=== PATIENT | male | born 1935 | race Caucasian/White ===

== ENCOUNTER 2017-09-13 12:11 | Emergency (ER) | payer MEDICARE, OTHER ==
--- NOTE | 2017-09-14 14:41 | CR ---
INDICATION: Shortness of breath. CHEST: Three views of the chest were obtained. At least two were PA. Initial portable view was obtained AP with lordotic positioning, and felt to be inadequate. Two lateral views were also obtained. They were obtained on 2016 and are compared with 11/18/2012 and 09/11/2012. Bipolar pacemaker leads are unchanged in position. The heart is enlarged. The aorta is tortuous and calcified. Somewhat flattened diaphragm leaves are noted and appear to be progressively flattened, compatible with progressive COPD. Compression fractures that are old are noted at the lower thoracic spine. They appear to be fairly stable. Accentuated kyphosis is noted at that site. A definite active infiltrate or effusion was not identified. No evidence of CHF is seen. Overlying EKG leads are noted. IMPRESSION: 1. No definite acute process. 2. Progressive COPD is suggested. 3. ASHD with cardiomegaly and bipolar pacemaker leads - stable. 4. Compression fractures lower thoracic spine, stable. MTDD
== END 2017-09-13 14:25 | disposition home or self-care (01) ==
LOC: FB.ED 12:11
DX: R06.00 Dyspnea, unspecified (principal); E87.1 Hypo-osmolality and hyponatremia; G47.33 Obstructive sleep apnea (adult) (pediatric); I10 Essential (primary) hypertension; F41.9 Anxiety disorder, unspecified; Z79.01 Long term (current) use of anticoagulants; Z79.899 Other long term (current) drug therapy; Z95.0 Presence of cardiac pacemaker
CPT/HCPCS: 36415; 71020; 80053; 80162; 83880; 84443; 84484; 85025; 85379; 93010; 99283; 99285

== ENCOUNTER 2020-10-06 15:24 | Emergency (ER) | payer MEDICARE, OTHER ==
[2020-10-06 15:03] VITALS: BP 162/87; PULSE 99
[2020-10-06] MEDS ORDERED: Sodium Chloride 0.9% 10 ML Syringe FLUSH PRN ×2 (15:25→15:35)
[2020-10-06] MEDS ORDERED: Piperacillin/Tazobactam 4.5 GM in Sodium Chloride 0.9% 100 ML IV ONE ×2 (15:26→15:45)
[2020-10-06] MEDS ORDERED: Morphine 2 MG/ML SYRINGE IVPUSH PRN ×2 (15:26→15:34)
[2020-10-06] MEDS ORDERED: Lactated Ringers 1,000 ML IV SCH (15:30)
[2020-10-06] MEDS ORDERED: Morphine 2 MG/ML SYRINGE ONE (15:31)
--- NOTE | 2020-10-06 15:39 | EDM.PDOC ---
ED HPI GENERAL MEDICAL PROBLEM - General Chief Complaint: Abdominal Pain Time Seen by Provider: 10/06/20 15:24 Source of Information: Reports: Patient, Provider History Limitations: Reports: No Limitations - History of Present Illness INITIAL COMMENTS - FREE TEXT/NARRATIVE: Dagoberto presented to Clinic today for 2 day history of abdominal pain, last bowel movement was Tuesday, last meal was yesterday, he vomited after he ate, has not had any medications or food since. Denies any fevers, chills, cough, chest pain. He has COPD, states his shortness of breath is about the same as usual. Urinated in the clinic and when he arrived. CBC in clinic was 17.1, Cr 0.8 GFR>60, CRP 28. CMP pending(done at ), UA was negative. CT abdomen/pelvis done here at [facility] earlier this afternoon showed perforated bowel with large amount of free air, peritonitis, diverticulitis, spoke with Quinn Willoughby PA-C and Dr Dao Radiology. He initially had been sent over for admission prior to CT results being obtained by Mr. Willoughby. He was changed to ED patient on arrival. Spoke with Dr Sauer, surgeon combination welder, he advised transferred to [place]. He is a FULL CODE. Has oxygen at home but doesn't use regularly. - Related Data Allergies Allergy/AdvReac Type Severity Reaction Status Date / Time No Known Allergies Allergy Verified 10/06/20 12:59 Home Meds: Home Meds Citalopram [Citalopram HBr] 10 mg PO DAILY 04/28/15 [History] Levothyroxine [Synthroid] 50 mcg PO DAILY 04/28/15 [History] Lisinopril 20 mg PO DAILY 04/28/15 [History] Simvastatin [Zocor] 20 mg PO DAILY 04/28/15 [History] amLODIPine [Norvasc] 5 mg PO DAILY 04/28/15 [History] carvediloL [Coreg] 25 mg PO BID 04/28/15 [History] Albuterol [Ventolin HFA] 2 puff INH QID 11/07/15 [History] Aspirin 325 mg PO DAILY 11/07/15 [History] Carbatrol 200mg 400 mg PO BID 10/06/20 [History] Diclofenac Sodium 2 gm TP QID 10/06/20 [History] Tiotropium [Spiriva] 18 mcg INH DAILY 10/06/20 [History] Past Medical History HEENT History: Reports: Cataract, Hard of Hearing, Impaired Vision Cardiovascular History: Reports: High Cholesterol, Hypertension, Pacemaker, SOB on Exertion Respiratory History: Reports: Pneumonia, Recurrent Gastrointestinal History: Reports: Diverticulosis Genitourinary History: Reports: None DIRECTOR OF PROMOTIONS History: Reports: None Musculoskeletal History: Reports: Fracture Other Musculoskeletal History: RIGHT ELBOW. Neurological History: Reports: Seizure Other Neuro History: APPROX 20 YEARS AGO X1, MEDICATES, HAS HAD NO SEIZURES SINCE THEN. Psychiatric History: Reports: Anxiety Endocrine/Metabolic History: Reports: Hypothyroidism, Obesity/BMI 30+ Hematologic History: Reports: None Immunologic History: Reports: None Oncologic (Cancer) History: Reports: None Dermatologic History: Reports: Other (See Below) Other Dermatologic History: STREET IN PAST ON CHEST. - Infectious Disease History Infectious Disease History: Reports: Chicken Pox, Measles, Mumps - Past Surgical History Head Surgeries/Procedures: Reports: None HEENT Surgical History: Reports: Cataract Surgery GI Surgical History: Reports: Appendectomy, Colonoscopy Other Musculoskeletal Surgeries/Procedures:: ELBOW SURGERY R ED ROS GENERAL - Review of Systems Review Of Systems: See Below Constitutional: Reports: No Symptoms HEENT: Reports: No Symptoms Respiratory: Reports: Shortness of Breath (chronic). Denies: Cough Cardiovascular: Reports: No Symptoms Endocrine: Reports: No Symptoms GI/Abdominal: Reports: Abdominal Pain, Constipation, Flatus. Denies: Black Stool, Bloody Stool, Nausea, Vomiting : Reports: No Symptoms Musculoskeletal: Reports: No Symptoms Skin: Reports: No Symptoms Neurological: Reports: No Symptoms Psychiatric: Reports: No Symptoms Hematologic/Lymphatic: Reports: No Symptoms ED EXAM, GI/ABD - Physical Exam Exam: See Below Exam Limited By: No Limitations General Appearance: Alert, WD/WN, No Apparent Distress Eyes: Bilateral: Normal Appearance, EOMI Ears: Normal External Exam Nose: Normal Inspection Throat/Mouth: Normal Inspection Head: Atraumatic, Normocephalic Neck: Normal Inspection Respiratory/Chest: No Respiratory Distress, Lungs Clear, Normal Breath Sounds, No Accessory Muscle Use Cardiovascular: Regular Rate, Rhythm, No Edema GI/Abdominal Exam: Distended, Guarding, Rebound, Tender, Abnormal Bowel Sounds (hypoactive BS x 4). No: Rigid (Male) Exam: Deferred Rectal (Males) Exam: Deferred Extremities: No Pedal Edema, Normal Capillary Refill Neurological: Alert, Oriented, CN II-XII Intact, Normal Cognition, No Motor/Sensory Deficits Psychiatric: Normal Affect, Normal Mood Skin Exam: Warm, Dry, Intact Course - Vital Signs Last Recorded V/S: Last Vital Signs Temp 97.9 F 10/06/20 14:18 Pulse 99 10/06/20 14:18 Resp 16 10/06/20 14:18 BP 162/87 H 10/06/20 14:18 Pulse Ox 95 10/06/20 14:18 - Orders/Labs/Meds Orders: Active Orders 24 hr Category Date Time Status CORONAVIRUS COVID-19 JENNIFER [MOLEC] Stat Lab 10/06/20 15:25 Ordered CULTURE BLOOD [BC] Urgent Lab 10/06/20 15:25 Ordered CULTURE BLOOD [BC] Urgent Lab 10/06/20 15:25 Ordered LACTIC ACID [CHEM] Stat Lab 10/06/20 15:26 Ordered Lactated Ringers @ 50 MLS/HR(1000ml) Med 10/06/20 15:30 Ordered Lactated Ringers [Ringers, Lactated] 1,000 ml IV ASDIRECTED Morphine Med 10/06/20 15:26 Ordered 2 mg IVPUSH Q1H PRN Piperacillin/Tazobactam [Zosyn] 4.5 gm Med 10/06/20 15:26 Ordered Sodium Chloride 0.9% [Normal Saline] 100 ml IV ONETIME Sodium Chloride 0.9% [Saline Flush] Med 10/06/20 15:25 Ordered 10 ml FLUSH ASDIRECTED PRN Blood Culture x2 Reflex Set [OM.PC] Urgent Oth 10/06/20 15:25 Ordered Saline Lock Insert [OM.PC] Routine Oth 10/06/20 15:25 Ordered Medication Orders Piperacillin Sod/Tazobactam (Sod 4.5 gm/ Sodium Chloride) 100 mls @ 200 mls/hr IV ONETIME ONE Stop: 10/06/20 15:55 Lactated Ringer's (Ringers, Lactated) 1,000 mls @ 50 mls/hr IV ASDIRECTED MACIEL Morphine Sulfate (Morphine) 2 mg IVPUSH Q1H PRN PRN Reason: Pain (severe 7-10) Sodium Chloride (Saline Flush) 10 ml FLUSH ASDIRECTED PRN PRN Reason: Keep Vein Open Meds: Medications Generic Name Dose Route Start Last Admin Trade Name Freq PRN Reason Stop Dose Admin Piperacillin Sod/Tazobactam 100 mls @ 200 mls/hr 10/06/20 15:26 Sod 4.5 gm/ Sodium Chloride IV 10/06/20 15:55 ONETIME ONE Lactated Ringer's 1,000 mls @ 50 mls/hr 10/06/20 15:30 Ringers, Lactated IV ASDIRECTED MACIEL Morphine Sulfate 2 mg 10/06/20 15:26 Morphine IVPUSH Q1H PRN Pain (severe 7-10) Sodium Chloride 10 ml 10/06/20 15:25 Saline Flush FLUSH ASDIRECTED PRN Keep Vein Open Discontinued Medications Generic Name Dose Route Start Last Admin Trade Name Freq PRN Reason Stop Dose Admin Morphine Sulfate Confirm 10/06/20 15:31 Morphine Administered 10/06/20 15:32 Dose 2 mg .ROUTE .[facility] ONE - Radiology Interpretation Free Text/Narrative:: Perforated bowel, possibly diverticulitis vs ulcer, peritonitis, diverticulitis. CT Results Date: 10/06/20 CT Results Time: 13:39 Departure - Departure Time of Disposition: 16:10 ([facility]) Disposition: DC/Tfer to [facility] Clinical Impression: Diverticulitis, Leukocytosis, Perforated bowel, Peritonitis (acute) generalized - Discharge Information *PRESCRIPTION DRUG MONITORING PROGRAM REVIEWED*: Not Applicable *COPY OF PRESCRIPTION DRUG MONITORING REPORT IN PATIENT MAURICE: Not Applicable Sepsis Event Note (ED) - Focused Exam Vital Signs: Vital Signs Temp Pulse Resp BP Pulse Ox 10/06/20 14:18 97.9 F 99 16 162/87 H 95 - Problem List & Annotations (1) Perforated bowel SNOMED Code(s): 58441095 Code(s): K63.1 - PERFORATION OF INTESTINE (NONTRAUMATIC) Status: Acute Current Visit: Yes (2) Peritonitis (acute) generalized SNOMED Code(s): 57495763 Code(s): K65.0 - GENERALIZED (ACUTE) PERITONITIS Status: Acute Current Visit: Yes (3) Diverticulitis SNOMED Code(s): 679306457 Code(s): K57.92 - DVTRCLI OF INTEST, PART UNSP, W/O PERF OR ABSCESS W/O BLEED Status: Acute Current Visit: Yes (4) Leukocytosis SNOMED Code(s): 472523152, 554436902 Code(s): D72.829 - ELEVATED WHITE BLOOD CELL COUNT, UNSPECIFIED Status: Acute Current Visit: Yes Qualifiers: Leukocytosis type: unspecified Qualified Code(s): D72.829 - Elevated white blood cell count, unspecified (5) COPD (chronic obstructive pulmonary disease) SNOMED Code(s): 51028344 Code(s): J44.9 - CHRONIC OBSTRUCTIVE PULMONARY DISEASE, UNSPECIFIED Status: Chronic Current Visit: Yes (6) Seizure disorder SNOMED Code(s): 384145499 Code(s): G40.909 - EPILEPSY, UNSP, NOT INTRACTABLE, WITHOUT STATUS EPILEPTICUS Status: Chronic Current Visit: Yes (7) Hypertension SNOMED Code(s): 68659079 Code(s): I10 - ESSENTIAL (PRIMARY) HYPERTENSION Status: Chronic Current Visit: Yes (8) Pacemaker SNOMED Code(s): 458975731 Code(s): Z95.0 - PRESENCE OF CARDIAC PACEMAKER Status: Chronic Current Visit: Yes - Problem List Review Problem List Initiated/Reviewed/Updated: Yes - My Orders Last 24 Hours: My Active Orders 10/06/20 15:25 CORONAVIRUS COVID-19 JENNIFER [MOLEC] Stat CULTURE BLOOD [BC] Urgent CULTURE BLOOD [BC] Urgent Sodium Chloride 0.9% [Saline Flush] 10 ml FLUSH ASDIRECTED PRN Blood Culture x2 Reflex Set [OM.PC] Urgent Saline Lock Insert [OM.PC] Routine 10/06/20 15:26 LACTIC ACID [CHEM] Stat Morphine 2 mg IVPUSH Q1H PRN Piperacillin/Tazobactam [Zosyn] 4.5 gm Sodium Chloride 0.9% [Normal Saline] 100 ml IV ONETIME 10/06/20 15:30 Lactated Ringers @ 50 MLS/HR(1000ml) Lactated Ringers [Ringers, Lactated] 1,000 ml IV ASDIRECTED - Assessment/Plan Last 24 Hours: My Active Orders 10/06/20 15:25 CORONAVIRUS COVID-19 JENNIFER [MOLEC] Stat CULTURE BLOOD [BC] Urgent CULTURE BLOOD [BC] Urgent Sodium Chloride 0.9% [Saline Flush] 10 ml FLUSH ASDIRECTED PRN Blood Culture x2 Reflex Set [OM.PC] Urgent Saline Lock Insert [OM.PC] Routine 10/06/20 15:26 LACTIC ACID [CHEM] Stat Morphine 2 mg IVPUSH Q1H PRN Piperacillin/Tazobactam [Zosyn] 4.5 gm Sodium Chloride 0.9% [Normal Saline] 100 ml IV ONETIME 10/06/20 15:30 Lactated Ringers @ 50 MLS/HR(1000ml) Lactated Ringers [Ringers, Lactated] 1,000 ml IV ASDIRECTED Plan: Spoke with Dr Sauer, combination welder surgeon when CT results were known, advised transfer to [place]. Spoke with Dr Lopez at [facility] Surgeon combination welder, they will accept patient in transfer, will see in ED there. Will get lactic acid, Blood cultures x 2, Start Zosyn 4.5 G x 1, LR to keep vein open as blood pressure is elevated. Morphine 2 mg IV q1h. Covid test collected and will send results once obtained. Patient is FULL CODE. Spoke with patient's , Francie CT findings and need to transfer to [place], Dagoberto and her were in agreement with transfer. Her cell number was given to ED nurse in [place].
[2020-10-06] MEDS ORDERED: HYDROmorphone 2 MG/ML SDV IVPUSH ONE (15:57)
== END 2020-10-06 16:15 ==
LOC: FB.EDOUT 15:24 → FB.ED 15:24 → FB.EDOUT 16:15
DX: K57.92 Diverticulitis of intestine, part unspecified, without perforation or abscess without bleeding (principal); D72.829 Elevated white blood cell count, unspecified; K63.1 Perforation of intestine (nontraumatic); K65.0 Generalized (acute) peritonitis; E78.00 Pure hypercholesterolemia, unspecified; I10 Essential (primary) hypertension; E03.9 Hypothyroidism, unspecified; E66.9 Obesity, unspecified; Z20.822 Contact with and (suspected) exposure to COVID-19; Z79.899 Other long term (current) drug therapy; Z79.82 Long term (current) use of aspirin
CPT/HCPCS: 36415; 74177; 83605; 87040; 96365; 96375; 99285-25; J2270; J2543; J7050; Q9963; Q9967; U0002

== ENCOUNTER 2020-10-16 07:53 | Inpatient (IN) | payer MEDICARE, OTHER ==
[2020-10-16] MEDS ORDERED: Albuterol 8 GM Inhaler INH PRN (13:52)
--- NOTE | 2020-10-16 13:59 | PCM.HP.2 ---
H&P History of Present Illness - General Date of Service: 10/16/20 Admit Problem/Dx: Admission Diagnosis/Problem Admission Diagnosis/Problem Weakness Source of Information: Patient, Old Records, Provider - History of Present Illness Initial Comments - Free Text/Narative: Dagoberto had perforated diverticulitis on 10/06, was sent to [facility], had end- loop colostomy, midline incision loosely stapled to allow drainage and secondary intent of the wound. Daily and as needed dressing changes with dry gauze, has surgery follow up appointment on Oct 23 At 1345 in [place]. Had hypokalemia yesterday of 2.9 but corrected today was 3.6 in [place]. He was discharged with 5 more days of Augmentin bid, completed his IV antibiotics in [place]. He has weight restrictions: no lifting >15 pounds for 4 weeks. Denies fevers, chills, shortness of breath, chest pain, nausea or vomiting. Has had regular bowel movements for the last 24 hours. No dysuria, frequency. No rashes. Midline incision with colostomy LLQ. Had bilateral knee injections in clinic on 10/03, noted right effusion during acute stay in [place], Orthopedics assessed for questionable septic joint, they did not feel it was infected, recommended ice & elevation. Covid test negative yesterday. - Related Data Allergies/Adverse Reactions: Allergies Allergy/AdvReac Type Severity Reaction Status Date / Time No Known Allergies Allergy Verified 10/06/20 12:59 Home Medications: Home Meds Citalopram [Citalopram HBr] 10 mg PO DAILY 04/28/15 [History] Levothyroxine [Synthroid] 50 mcg PO DAILY 04/28/15 [History] Simvastatin [Zocor] 20 mg PO DAILY 04/28/15 [History] carvediloL [Coreg] 25 mg PO BIDMEALS 04/28/15 [History] Albuterol [Ventolin HFA] 2 puff INH QID PRN 11/07/15 [History] Aspirin 325 mg PO DAILY 11/07/15 [History] Carbatrol 200mg 400 mg PO BID 10/06/20 [History] Diclofenac Sodium 2 gm TP QID 10/06/20 [History] Tiotropium [Spiriva] 18 mcg INH DAILY 10/06/20 [History] Amoxicillin/Clavulanate K [Augmentin 875125 MG] 1 tab PO Q12H 10/16/20 [History] amLODIPine Besylate [Amlodipine Besylate] 10 mg PO DAILY 10/16/20 [History] hydrALAZINE [Apresoline] 25 mg PO TID 10/16/20 [History] lisinopriL [Lisinopril] 40 mg PO DAILY 10/16/20 [History] Past Medical History HEENT History: Reports: Cataract, Hard of Hearing, Impaired Vision Cardiovascular History: Reports: High Cholesterol, Hypertension, Pacemaker, SOB on Exertion Respiratory History: Reports: Pneumonia, Recurrent Gastrointestinal History: Reports: Diverticulosis Genitourinary History: Reports: None SIZE PAINTER History: Reports: None Musculoskeletal History: Reports: Fracture Other Musculoskeletal History: RIGHT ELBOW. Neurological History: Reports: Seizure Other Neuro History: APPROX 20 YEARS AGO X1, MEDICATES, HAS HAD NO SEIZURES SINCE THEN. Psychiatric History: Reports: Anxiety Endocrine/Metabolic History: Reports: Hypothyroidism, Obesity/BMI 30+ Hematologic History: Reports: None Immunologic History: Reports: None Oncologic (Cancer) History: Reports: None Dermatologic History: Reports: Other (See Below) Other Dermatologic History: STREET IN PAST ON CHEST. - Infectious Disease History Infectious Disease History: Reports: Chicken Pox, Measles, Mumps - Past Surgical History Head Surgeries/Procedures: Reports: None HEENT Surgical History: Reports: Cataract Surgery GI Surgical History: Reports: Appendectomy, Colonoscopy Other Musculoskeletal Surgeries/Procedures:: ELBOW SURGERY R Social & Family History - Caffeine Use Caffeine Use: Reports: Coffee H&P Review of Systems - Review of Systems: Review Of Systems: Comprehensive ROS is negative, except as noted in HPI. Exam - Exam Exam: See Below - Vital Signs Weight: 238 lb 12.8 oz - Exam General: Alert, Oriented, Cooperative. No: Mild Distress HEENT: PERRLA, Conjunctiva Clear, Hearing Intact, Mucosa Moist & [place] Neck: Trachea Midline Lungs: Clear to Auscultation, Normal Respiratory Effort Cardiovascular: Regular Rate, Regular Rhythm GI/Abdominal Exam: Normal Bowel Sounds, Soft, Non-Tender, No Distention, Other (Midline incision covered with ABD pad, colostomy LLQ) (Male) Exam: Deferred Rectal (Males) Exam: Deferred Extremities: No Pedal Edema (TEDs BLE), Normal Capillary Refill Peripheral Pulses: 2+: Radial (L), Radial (R) Skin: Incision (midline covered ABD pad) Neuro Extensive - Mental Status: Alert, Oriented x3, Normal Mood/Affect Sepsis Event Note - Evaluation Sepsis Screening Result: No Definite Risk *Q Meaningful Use (ADM) - VTE Risk Assess *Q Each Risk Factor Represents 1 Point: None Total Score 1 Point Risk Factors: 0 Each Risk Factor Represents 2 Points: Major surgery greater than 45 minutes Total Score 2 Point Risk Factors: 2 Each Risk Factor Represents 3 Points: Age 75 Years or Greater Total Score 3 Point Risk Factors: 3 Each Risk Factor Represents 5 Points: None Total Score 5 Point Risk Factors: 0 Venous Thromboembolism Risk Factor Score *Q: 5 - Problem List (1) Weakness SNOMED Code(s): 43266781 ICD Code: R53.1 - WEAKNESS Status: Acute Current Visit: Yes (2) S/P colostomy SNOMED Code(s): 744767555, 804802385, 126679389 ICD Code: Z93.3 - COLOSTOMY STATUS Status: Acute Current Visit: Yes Onset Date: ~10/06/20 (3) Perforated bowel SNOMED Code(s): 77854799 ICD Code: K63.1 - PERFORATION OF INTESTINE (NONTRAUMATIC) Status: Acute Current Visit: No Onset Date: ~10/06/20 Problem Details: s/p end-loop colostomy (4) Hypertension SNOMED Code(s): 02738754 ICD Code: I10 - ESSENTIAL (PRIMARY) HYPERTENSION Status: Chronic Current Visit: No Qualifiers: Hypertension type: essential hypertension Qualified Code(s): I10 - Essential (primary) hypertension (5) Pacemaker SNOMED Code(s): 025509582 ICD Code: Z95.0 - PRESENCE OF CARDIAC PACEMAKER Status: Chronic Current Visit: No (6) Seizure disorder SNOMED Code(s): 836144363 ICD Code: G40.909 - EPILEPSY, UNSP, NOT INTRACTABLE, WITHOUT STATUS EPILEPTICUS Status: Chronic Current Visit: No (7) Osteoarthritis SNOMED Code(s): 215432896 ICD Code: M19.90 - UNSPECIFIED OSTEOARTHRITIS, UNSPECIFIED SITE Status: Chronic Current Visit: Yes (8) Effusion, right knee SNOMED Code(s): 628521293738623 ICD Code: M25.461 - EFFUSION, RIGHT KNEE Status: Acute Current Visit: Yes Onset Date: ~10/03/20 Problem List Initiated/Reviewed/Updated: Yes Orders Last 24hrs: Active Orders 24 hr Category Date Time Status Patient Status [ADT] Routine ADT 10/16/20 13:46 Ordered Height and Weight [RC] WEEKLY Care 10/16/20 13:46 Ordered Ostomy Assessment [RC] QSHIFT Care 10/16/20 13:46 Active Oxygen Therapy [RC] PRN Care 10/16/20 13:46 Ordered RT Post Treatment Assessment [RC] Click to Edit Care 10/16/20 13:53 Ordered Up ad Jane [RC] ASDIRECTED Care 10/16/20 13:46 Ordered VTE/DVT Education [RC] Per Unit Routine Care 10/16/20 13:46 Ordered Vital Signs [RC] PER UNIT ROUTINE Care 10/16/20 13:46 Ordered Wound Care [RC] DAILY Care 10/16/20 13:46 Ordered OT Evaluation and Treatment [CONS] Routine Cons 10/16/20 13:46 Ordered PT Evaluation and Treatment [CONS] Routine Cons 10/16/20 13:46 Ordered Regular Diet [DIET] Diet 10/16/20 Dinner Ordered Albuterol [Ventolin HFA] Med 10/16/20 13:52 Ordered 2 puff INH QID PRN Amoxicillin/Clavulanate K [Augmentin 875 MG/125 MG] Med 10/16/20 14:00 Ordered 1 tab PO Q12H Aspirin [Aspirin] Med 10/17/20 09:00 Ordered 325 mg PO DAILY Carbatrol 200mg Med 10/16/20 21:00 Ordered 400 mg PO BID Citalopram [Celexa] Med 10/17/20 09:00 Ordered 10 mg PO DAILY Diclofenac Sodium [Diclofenac Sodium] Med 10/16/20 17:00 Ordered 2 gm TP QID Levothyroxine [Synthroid] Med 10/17/20 09:00 Ordered 50 mcg PO DAILY Simvastatin [Zocor] Med 10/17/20 09:00 Ordered 20 mg PO DAILY Tiotropium [Spiriva HandiHaler] Med 10/17/20 09:00 Ordered 18 mcg INH DAILY amLODIPine [Norvasc] Med 10/17/20 09:00 Ordered 10 mg PO DAILY carvediloL [Coreg] Med 10/16/20 18:00 Ordered 25 mg PO BIDMEALS hydrALAZINE [Apresoline] Med 10/16/20 14:00 Ordered 25 mg PO TID lisinopriL [Prinivil] Med 10/17/20 09:00 Ordered 40 mg PO DAILY Antiembolic Hose [OM.PC] Per Unit Routine Oth 10/16/20 13:51 Ordered Resuscitation Status Routine Resus Stat 10/16/20 13:46 Ordered Medication Orders Albuterol (Ventolin Hfa) gm INH QID PRN PRN Reason: Shortness of Breath Amlodipine Besylate (Norvasc) 10 mg PO DAILY [facility] Amoxicillin/Clavulanate Potassium (Augmentin 875 Mg/125 Mg) 1 tab PO Q12H [facility] Stop: 10/21/20 14:01 Carvedilol (Coreg) 25 mg PO BIDMEALS [facility] Citalopram Hydrobromide (Celexa) 10 mg PO DAILY [facility] Hydralazine HCl (Apresoline) 25 mg PO TID [facility] Levothyroxine Sodium (Synthroid) 50 mcg PO DAILY [facility] Lisinopril (Prinivil) 40 mg PO DAILY [facility] Non-Formulary Medication (Aspirin [Aspirin]) 325 mg PO DAILY [facility] Non-Formulary Medication (Carbatrol 200mg) 400 mg PO BID [facility] Non-Formulary Medication (Diclofenac Sodium [Diclofenac Sodium]) 2 gm TP QID [facility] Simvastatin (Zocor) 20 mg PO DAILY [facility] Tiotropium [place] (Spiriva Handihaler) 18 mcg INH DAILY [facility] Assessment/Plan Comment:: 1. Admit to Swing bed for PT/OT for strengthening/ADLs due to weakness, s/p perforated diverticulitis, s/p colostomy. 2. PT/OT evaluate & treat. No lifting >15 lbs for 4 weeks. 3. S/p perforated diverticulitis: completed IV antibiotics in [place], has 5 days of Augmentin bid to complete. Routine colostomy cares. Clean incision with soap & water daily, change dry gauze dressing daily & as needed. F/U surgery appt 10/23 1345 pm next week in [place]. 4. Right knee effusion, OA: Ice & Elevated as needed. 5. Regular diet. 6. DVT prophylaxis: TEDs BLE, Aspirin 325 mg daily. 7. CODE STATUS: FULL. - Mortality Measure Prognosis:: Good
[2020-10-16] MEDS: hydrALAZINE 25 MG Tab PO SCH ×2 (15:28→20:55)
[2020-10-16] MEDS: Diclofenac Sodium 1% Gel 100 GM Tube TOP SCH ×2 (18:07→20:53)
[2020-10-16] MEDS: Carvedilol 25 MG Tab PO SCH (18:07)
[2020-10-16] MEDS: Amoxicillin/Clavulanate K 875-125 MG Tab PO SCH (20:53)
[2020-10-16] MEDS: carBAMazepine 200 MG TAB.ER PO SCH (20:54)
[2020-10-17] MEDS: Carvedilol 25 MG Tab PO SCH ×2 (08:43→17:43)
[2020-10-17] MEDS: hydrALAZINE 25 MG Tab PO SCH ×3 (08:44→21:49)
[2020-10-17] MEDS: Aspirin 325 MG Tab.EC PO SCH (08:44)
[2020-10-17] MEDS: Amoxicillin/Clavulanate K 875-125 MG Tab PO SCH ×2 (08:44→21:49)
[2020-10-17] MEDS: Citalopram 10 MG Tab PO SCH (08:44)
[2020-10-17] MEDS: amLODIPine 10 MG Tab PO SCH (08:44)
[2020-10-17] MEDS: Tiotropium Inhaler 18 MCG Inhalation Powder Cap Kit of 5 INH SCH (08:45)
[2020-10-17] MEDS: Levothyroxine 50 MCG Tab PO SCH (08:45)
[2020-10-17] MEDS: Simvastatin 20 MG Tab PO SCH (08:46)
[2020-10-17] MEDS: carBAMazepine 200 MG TAB.ER PO SCH ×2 (08:46→21:51)
[2020-10-17] MEDS: Diclofenac Sodium 1% Gel 100 GM Tube TOP SCH ×4 (08:46→21:49)
[2020-10-18] MEDS: Tiotropium Inhaler 18 MCG Inhalation Powder Cap Kit of 5 INH SCH (08:30)
[2020-10-18] MEDS: Aspirin 325 MG Tab.EC PO SCH (08:31)
[2020-10-18] MEDS: Amoxicillin/Clavulanate K 875-125 MG Tab PO SCH ×2 (08:32→21:29)
[2020-10-18] MEDS: Citalopram 10 MG Tab PO SCH (08:32)
[2020-10-18] MEDS: Levothyroxine 50 MCG Tab PO SCH (08:32)
[2020-10-18] MEDS: amLODIPine 10 MG Tab PO SCH (08:32)
[2020-10-18] MEDS: Carvedilol 25 MG Tab PO SCH ×2 (08:32→17:57)
[2020-10-18] MEDS: hydrALAZINE 25 MG Tab PO SCH ×3 (08:33→21:30)
[2020-10-18] MEDS: Simvastatin 20 MG Tab PO SCH (08:35)
[2020-10-18] MEDS: carBAMazepine 200 MG TAB.ER PO SCH ×2 (08:35→21:29)
[2020-10-19] MEDS: Tiotropium Inhaler 18 MCG Inhalation Powder Cap Kit of 5 INH SCH (08:29)
[2020-10-19] MEDS: amLODIPine 10 MG Tab PO SCH (08:30)
[2020-10-19] MEDS: carBAMazepine 200 MG TAB.ER PO SCH ×2 (08:30→21:03)
[2020-10-19] MEDS: Aspirin 325 MG Tab.EC PO SCH (08:30)
[2020-10-19] MEDS: Simvastatin 20 MG Tab PO SCH (08:30)
[2020-10-19] MEDS: Levothyroxine 50 MCG Tab PO SCH (08:30)
[2020-10-19] MEDS: hydrALAZINE 25 MG Tab PO SCH ×3 (08:31→21:03)
[2020-10-19] MEDS: Citalopram 10 MG Tab PO SCH (08:31)
[2020-10-19] MEDS: Amoxicillin/Clavulanate K 875-125 MG Tab PO SCH ×2 (08:31→21:03)
[2020-10-19] MEDS: Carvedilol 25 MG Tab PO SCH ×2 (08:31→18:31)
[2020-10-20] MEDS: Carvedilol 25 MG Tab PO SCH ×2 (08:59→17:32)
[2020-10-20] MEDS: Tiotropium Inhaler 18 MCG Inhalation Powder Cap Kit of 5 INH SCH (09:00)
[2020-10-20] MEDS: hydrALAZINE 25 MG Tab PO SCH ×3 (09:00→21:19)
[2020-10-20] MEDS: amLODIPine 10 MG Tab PO SCH (09:02)
[2020-10-20] MEDS: Aspirin 325 MG Tab.EC PO SCH (09:02)
[2020-10-20] MEDS: carBAMazepine 200 MG TAB.ER PO SCH ×2 (09:02→21:21)
[2020-10-20] MEDS: Amoxicillin/Clavulanate K 875-125 MG Tab PO SCH ×2 (09:02→21:20)
[2020-10-20] MEDS: Simvastatin 20 MG Tab PO SCH (09:03)
[2020-10-20] MEDS: Citalopram 10 MG Tab PO SCH (09:03)
[2020-10-20] MEDS: Levothyroxine 50 MCG Tab PO SCH (09:03)
[2020-10-21] MEDS: Citalopram 10 MG Tab PO SCH (09:23)
[2020-10-21] MEDS: Amoxicillin/Clavulanate K 875-125 MG Tab PO SCH (09:23)
[2020-10-21] MEDS: Tiotropium Inhaler 18 MCG Inhalation Powder Cap Kit of 5 INH SCH (09:24)
[2020-10-21] MEDS: Simvastatin 20 MG Tab PO SCH (09:24)
[2020-10-21] MEDS: Levothyroxine 50 MCG Tab PO SCH (09:24)
[2020-10-21] MEDS: carBAMazepine 200 MG TAB.ER PO SCH ×2 (09:24→20:28)
[2020-10-21] MEDS: Aspirin 325 MG Tab.EC PO SCH (09:24)
[2020-10-21] MEDS: Carvedilol 25 MG Tab PO SCH ×2 (09:35→17:31)
[2020-10-21] MEDS: hydrALAZINE 25 MG Tab PO SCH ×3 (09:35→20:29)
[2020-10-21] MEDS: amLODIPine 10 MG Tab PO SCH (09:36)
[2020-10-22] MEDS: Carvedilol 25 MG Tab PO SCH ×2 (08:06→18:18)
[2020-10-22] MEDS: hydrALAZINE 25 MG Tab PO SCH ×3 (08:06→21:59)
[2020-10-22] MEDS: amLODIPine 10 MG Tab PO SCH (08:07)
[2020-10-22] MEDS: Citalopram 10 MG Tab PO SCH (08:07)
[2020-10-22] MEDS: Aspirin 325 MG Tab.EC PO SCH (08:07)
[2020-10-22] MEDS: Tiotropium Inhaler 18 MCG Inhalation Powder Cap Kit of 5 INH SCH (08:08)
[2020-10-22] MEDS: Levothyroxine 50 MCG Tab PO SCH (08:08)
[2020-10-22] MEDS: carBAMazepine 200 MG TAB.ER PO SCH ×2 (08:08→21:59)
[2020-10-22] MEDS: Simvastatin 20 MG Tab PO SCH (08:09)
[2020-10-23 08:05] VITALS: BP 124/66; PULSE 76
[2020-10-23] MEDS: Carvedilol 25 MG Tab PO SCH (08:15)
[2020-10-23] MEDS: hydrALAZINE 25 MG Tab PO SCH (08:15)
[2020-10-23] MEDS: amLODIPine 10 MG Tab PO SCH (08:16)
[2020-10-23] MEDS: Levothyroxine 50 MCG Tab PO SCH (08:16)
[2020-10-23] MEDS: carBAMazepine 200 MG TAB.ER PO SCH (08:16)
[2020-10-23] MEDS: Tiotropium Inhaler 18 MCG Inhalation Powder Cap Kit of 5 INH SCH (08:16)
[2020-10-23] MEDS: Citalopram 10 MG Tab PO SCH (08:16)
[2020-10-23] MEDS: Aspirin 325 MG Tab.EC PO SCH (08:16)
[2020-10-23] MEDS: Simvastatin 20 MG Tab PO SCH (08:17)
--- NOTE | 2020-10-23 23:41 | DISCH ---
DISCHARGE DATE: 10/23/2020 REASON FOR ADMISSION: 1. Weakness. 2. Status post colostomy. 3. Perforated bowel. 4. Hypertension. 5. Pacemaker in situ. 6. Seizure disorder. 7. Osteoarthritis. 8. Right knee effusion. BRIEF HISTORY: This is an 85-year-old male, Dagoberto, who was admitted to swing bed on after he had come from [place]. He had diverticulitis and perforation of the bowel. He had end-loop colostomy which was placed at that time. He was admitted with weakness for wound care changes and completion of oral antibiotics. He has worked with Physical Therapy. He is ready to go home today and he will go home with Home Health to continue with his rehabilitation. He will go home on a front-wheeled walker due to gait disturbance and weakness. DISCHARGE MEDICATIONS: 1. Albuterol inhaler p.r.n. 2. Amlodipine 10 mg a day, which is a new strength. 3. Aspirin 325 mg a day. 4. Carbatrol 200 mg b.i.d. 5. Carbamazepine 400 mg b.i.d. 6. Carvedilol 25 mg b.i.d. 7. Citalopram 10 mg a day. 8. Hydralazine 25 mg t.i.d., which is new. 9. Levothyroxine 50 mcg daily. 10.Lisinopril 40 mg a day. 11.Simvastatin 20 mg daily. 12.Tiotropium inhaler once a day. FOLLOW UP: He will see his PCP in the clinic. I spent more than 35 minutes in the discharge of the patient. /[id number] [place]/DAY
== END 2020-10-23 12:45 | disposition home health service (06) | DRG 948 ==
LOC: FB.MS 12:27
PROVIDERS: ADMIT Family Medicine; ATTEND Family Medicine
DX: R53.1 Weakness (principal); R26.9 Unspecified abnormalities of gait and mobility; G40.909 Epilepsy, unspecified, not intractable, without status epilepticus; M19.90 Unspecified osteoarthritis, unspecified site; M25.461 Effusion, right knee; I10 Essential (primary) hypertension; H91.90 Unspecified hearing loss, unspecified ear; H54.7 Unspecified visual loss; F41.9 Anxiety disorder, unspecified; E03.9 Hypothyroidism, unspecified; E66.9 Obesity, unspecified; Z95.0 Presence of cardiac pacemaker; Z79.890 Hormone replacement therapy; Z79.82 Long term (current) use of aspirin; Z79.899 Other long term (current) drug therapy
CPT/HCPCS: 36415; 80048; 83880; 85025; 97110-GO; 97116-GP; 97161-GP; 97165-GO; 97530-GO; 97530-GP; 97535-GO; A9270-GY

== ENCOUNTER 2021-05-05 09:33 | Inpatient (IN) | payer MEDICARE, OTHER ==
[2021-05-05] MEDS ORDERED: Albuterol 8 GM Inhaler INH PRN (13:45)
--- NOTE | 2021-05-05 17:29 | PCM.HP.2 ---
H&P History of Present Illness - General Date of Service: 05/05/21 Admit Problem/Dx: Admission Diagnosis/Problem Admission Diagnosis/Problem Weakness Source of Information: Patient, Old Records History Limitations: Reports: Other (sleepy) - History of Present Illness Initial Comments - Free Text/Narative: This is an 86-year-old male patient that had a Borrego's procedure after perforated diverticulitis. He is healed up and he decided he wanted the colostomy taken down. So he went to [facility] and I did the operation. He is here because he is weak and needs rehabilitation. Surgery went well. Apparently there the Them couple times couldn't urinate and then placed Yusuf catheter and sent him here. He says he is feels tired and weak but he denies fevers, chills, chest pain, cough. - Related Data Allergies/Adverse Reactions: Allergies Allergy/AdvReac Type Severity Reaction Status Date / Time No Known Allergies Allergy Verified 10/16/20 14:59 Home Medications: Home Meds Citalopram [Citalopram HBr] 10 mg PO DAILY 04/28/15 [History] Levothyroxine [Synthroid] 50 mcg PO DAILY@0600 04/28/15 [History] Simvastatin [Zocor] 20 mg PO DAILY 04/28/15 [History] carvediloL [Coreg] 25 mg PO BIDMEALS 04/28/15 [History] Albuterol [Ventolin HFA] 2 puff INH QID PRN 11/07/15 [History] Aspirin 325 mg PO DAILY 11/07/15 [History] Carbatrol 200mg 400 mg PO BID 10/06/20 [History] amLODIPine Besylate [Amlodipine Besylate] 10 mg PO DAILY #30 10/23/20 [Rx] lisinopriL [Lisinopril] 40 mg PO DAILY #30 10/23/20 [Rx] Hydrocodone/Acetaminophen [[place] 5-325 mg Tablet] 1 tab PO Q4H PRN 05/05/21 [History] Tamsulosin [Flomax] 0.4 mg PO DAILY 05/05/21 [History] Past Medical History HEENT History: Reports: Cataract, Hard of Hearing Cardiovascular History: Reports: Cardiomyopathy, High Cholesterol, Hypertension, IN, Pacemaker, SOB on Exertion, Other (See Below) Respiratory History: Reports: COPD, Pneumonia, Recurrent Gastrointestinal History: Reports: Diverticulosis, Other (See Below) Other Gastrointestinal History: Diverticulitis Genitourinary History: Reports: Retention, Urinary, Other (See Below) Other Genitourinary History: patient was straight cathed 02/02/21 and was followup with yusuf cath insert. Presents on admission with yusuf cath in place to leg bag. GROUP ACCOUNT DIRECTOR History: Reports: None Musculoskeletal History: Reports: Fracture, Osteoarthritis Other Musculoskeletal History: RIGHT ELBOW. Neurological History: Reports: Seizure, Other (See Below) Other Neuro History: APPROX 20 YEARS AGO X1, MEDICATES, HAS HAD NO SEIZURES SINCE THEN. Psychiatric History: Reports: Anxiety Endocrine/Metabolic History: Reports: Hypothyroidism, Obesity/BMI 30+, Other (See Below) Other Endocrine/Metabolic History: Hypophosphatemia Hematologic History: Reports: None Immunologic History: Reports: None Oncologic (Cancer) History: Reports: None Dermatologic History: Reports: Other (See Below) Other Dermatologic History: STREET IN PAST ON CHEST. - Infectious Disease History Infectious Disease History: Reports: Chicken Pox, Measles, Mumps - Past Surgical History Head Surgeries/Procedures: Reports: None HEENT Surgical History: Reports: Cataract Surgery, Other (See Below) Other HEENT Surgeries/Procedures: Tube in bilateral ears. GI Surgical History: Reports: Appendectomy, Colonoscopy, Colostomy, Other (See Below) Other GI Surgeries/Procedures: reversal/revision of colostomy on 04/30 Musculoskeletal Surgical History: Reports: Other (See Below) Other Musculoskeletal Surgeries/Procedures:: ELBOW SURGERY R Social & Family History - Tobacco Use Tobacco Use Status *Q: Former Tobacco User Used Tobacco, but Quit: Yes Month/Year Tobacco Last Used: quit 40 years ago Second Hand Smoke Exposure: No - Caffeine Use Caffeine Use: Reports: Coffee, Soda - Recreational Drug Use Recreational Drug Use: No H&P Review of Systems - Review of Systems: Review Of Systems: See Below General: Reports: Weakness, Fatigue HEENT: Reports: No Symptoms Pulmonary: Reports: No Symptoms Cardiovascular: Reports: No Symptoms Gastrointestinal: Reports: Abdominal Pain, Bloody Stool Genitourinary: Reports: No Symptoms Musculoskeletal: Reports: No Symptoms Skin: Reports: No Symptoms Psychiatric: Reports: No Symptoms Neurological: Reports: No Symptoms Hematologic/Lymphatic: Reports: No Symptoms Immunologic: Reports: No Symptoms Exam - Exam Exam: See Below - Vital Signs Vital Signs: Last Vital Signs Temp Pulse Resp BP Pulse Ox 97 05/05/21 12:26 Weight: 233 lb 9 oz - Exam General: Alert, Oriented, Cooperative, Sedated HEENT: Hearing Intact, Posterior Pharynx Clear, TMs Clear Neck: Supple, Trachea Midline Lungs: Clear to Auscultation, Normal Respiratory Effort Cardiovascular: Regular Rate, Regular Rhythm. No: Systolic Murmur GI/Abdominal Exam: Normal Bowel Sounds, No Distention, Distended (Mild tenderness. Diffuse) Skin: Warm, Dry, Intact, Other (The wound is covered on the abdomen part of its open and stapled together and it looks good.) Neurological: Normal Speech, Normal Tone Neuro Extensive - Mental Status: Alert, Oriented x3, Normal Mood/Affect, Normal Cognition, Other (He is alert but drowsy.) Psychiatric: Normal Mood Sepsis Event Note - Focused Exam Vital Signs: Vital Signs Pulse Ox 05/05/21 12:26 97 - Problem List (1) S/P colostomy SNOMED Code(s): 607825841, 834015053, 168932872 ICD Code: Z93.3 - COLOSTOMY STATUS Status: Acute Current Visit: No Onset Date: ~10/06/20 (2) Weakness SNOMED Code(s): 85058069 ICD Code: R53.1 - WEAKNESS Status: Acute Current Visit: No (3) COPD (chronic obstructive pulmonary disease) SNOMED Code(s): 03359128 ICD Code: J44.9 - CHRONIC OBSTRUCTIVE PULMONARY DISEASE, UNSPECIFIED Status: Chronic Current Visit: No Problem List Initiated/Reviewed/Updated: Yes Orders Last 24hrs: Active Orders 24 hr Category Date Time Status Patient Status [ADT] Routine ADT 05/05/21 12:26 Active Oxygen Therapy [RC] PRN Care 05/05/21 12:26 Active RT Post Treatment Assessment [RC] Click to Edit Care 05/05/21 13:46 Active Up With Assistance [RC] ASDIRECTED Care 05/05/21 12:26 Active VTE/DVT Education [RC] Per Unit Routine Care 05/05/21 12:26 Active Vital Signs [RC] DAILY Care 05/05/21 12:26 Active OT Evaluation and Treatment [CONS] Routine Cons 05/05/21 12:26 Active PT Evaluation and Treatment [CONS] Routine Cons 05/05/21 12:26 Active Regular Diet [DIET] Diet 05/05/21 Dinner Active Acetaminophen/HYDROcodone [[place] 325-5 MG] Med 05/05/21 13:45 Active 1 tab PO Q4H PRN Albuterol [Ventolin HFA] Med 05/05/21 13:45 Active 0 gm INH QID PRN Aspirin [Ecotrin] Med 05/06/21 09:00 Active 325 mg PO DAILY Citalopram [Celexa] Med 05/06/21 09:00 Active 10 mg PO DAILY Levothyroxine [Synthroid] Med 05/06/21 06:00 Active 50 mcg PO DAILY@0600 Simvastatin [Zocor] Med 05/06/21 09:00 Active 20 mg PO DAILY Tamsulosin [Flomax] Med 05/06/21 09:00 Active 0.4 mg PO DAILY amLODIPine [Norvasc] Med 05/06/21 09:00 Active 10 mg PO DAILY carBAMazepine [TEGretol ER] Med 05/05/21 21:00 Active 400 mg PO BID carvediloL [Coreg] Med 05/05/21 18:00 Active 25 mg PO BIDMEALS lisinopriL [Prinivil] Med 05/06/21 09:00 Active 40 mg PO DAILY Resuscitation Status Routine Resus Stat 05/05/21 12:26 Ordered Medication Orders Hydrocodone Bitart/Acetaminophen (Acetaminophen/Hydrocodone 325-5 Mg Tab) 1 tab PO Q4H PRN PRN Reason: Pain Albuterol (Albuterol 8 Gm Inhaler) 0 gm INH QID PRN PRN Reason: Shortness of Breath Amlodipine Besylate (Amlodipine 10 Mg Tab) 10 mg PO DAILY [facility] Aspirin (Aspirin 325 Mg Tab.Ec) 325 mg PO DAILY [facility] Carbamazepine (Carbamazepine 200 Mg Tab.Er) 400 mg PO BID [facility] Carvedilol (Carvedilol 25 Mg Tab) 25 mg PO BIDMEALS [facility] Citalopram Hydrobromide (Citalopram 10 Mg Tab) 10 mg PO DAILY [facility] Levothyroxine Sodium (Levothyroxine 50 Mcg Tab) 50 mcg PO DAILY@0600 [facility] Lisinopril (Lisinopril 40 Mg Tab) 40 mg PO DAILY [facility] Simvastatin (Simvastatin 20 Mg Tab) 20 mg PO DAILY [facility] Tamsulosin HCl (Tamsulosin 0.4 Mg Cap.Er) 0.4 mg PO DAILY [facility] Assessment/Plan Comment:: 1. Admit to swing bed. 2. Regular diet. 3. Up with assist. 4. PT/OT eval 5. Repeat labs in the a.m. 6. Yusuf catheter care. Try to find out when the doctors of [place] want to take it out. 7. Restart all the medications he came with from [facility]. - Mortality Measure Prognosis:: Good
[2021-05-05] MEDS: Carvedilol 25 MG Tab PO SCH (17:44)
[2021-05-05] MEDS: Acetaminophen/HYDROcodone 325-5 MG Tab PO PRN (19:05)
[2021-05-05] MEDS: carBAMazepine 200 MG TAB.ER PO SCH (21:44)
[2021-05-06] MEDS: Acetaminophen/HYDROcodone 325-5 MG Tab PO PRN (03:23)
[2021-05-06] MEDS: Levothyroxine 50 MCG Tab PO SCH (06:16)
[2021-05-06] MEDS: Aspirin 325 MG Tab.EC PO SCH (08:47)
[2021-05-06] MEDS: Tamsulosin 0.4 MG Cap.ER PO SCH (08:47)
[2021-05-06] MEDS: Carvedilol 25 MG Tab PO SCH ×2 (08:47→17:38)
[2021-05-06] MEDS: Citalopram 10 MG Tab PO SCH (08:48)
[2021-05-06] MEDS: carBAMazepine 200 MG TAB.ER PO SCH ×2 (08:48→21:00)
[2021-05-06] MEDS: Simvastatin 20 MG Tab PO SCH (08:49)
[2021-05-06] MEDS: amLODIPine 10 MG Tab PO SCH (08:51)
[2021-05-06] MEDS: Ciprofloxacin 500 MG Tab PO SCH (18:39)
[2021-05-07] MEDS: Levothyroxine 50 MCG Tab PO SCH (06:10)
[2021-05-07] MEDS: Ciprofloxacin 500 MG Tab PO SCH ×2 (06:10→17:05)
[2021-05-07] MEDS: Carvedilol 25 MG Tab PO SCH ×2 (08:54→17:04)
[2021-05-07] MEDS: Citalopram 10 MG Tab PO SCH (08:59)
[2021-05-07] MEDS: amLODIPine 10 MG Tab PO SCH (09:00)
[2021-05-07] MEDS: Tamsulosin 0.4 MG Cap.ER PO SCH (09:00)
[2021-05-07] MEDS: Aspirin 325 MG Tab.EC PO SCH (09:00)
[2021-05-07] MEDS: carBAMazepine 200 MG TAB.ER PO SCH ×2 (09:00→21:11)
[2021-05-07] MEDS: Simvastatin 20 MG Tab PO SCH (09:01)
--- NOTE | 2021-05-07 09:23 | PCM.PN ---
- General Info Date of Service: 05/07/21 Admission Dx/Problem (Free Text): Patient doing well. He was really lethargic when he first came in but he is now more alert. He's complaining of his knees hurting. He has arthritis and he gets shots of cortisone. Last time in September. He says he would do more therapy 50 get some shots in his knees. He denies any dysuria, pyuria, back pain. - Patient Data Vitals - Most Recent: Last Vital Signs Temp 98.3 F 05/06/21 08:00 Pulse 70 05/07/21 08:54 Resp 18 05/06/21 08:00 BP 150/82 H 05/07/21 09:00 Pulse Ox 96 05/06/21 08:00 Weight - Most Recent: 233 lb 9 oz I&O - Last 24 Hours: Intake & Output 05/06/21 05/07/21 05/07/21 22:59 06:59 14:59 Output Total 700 Balance -700 Srikanth Results Last 24 Hours: Microbiology 05/06/21 06:30 Urine Culture - Preliminary Urine, Catheterized No Growth Med Orders - Current: Current Medications Hydrocodone Bitart/Acetaminophen (Acetaminophen/Hydrocodone 325-5 Mg Tab) 1 tab PO Q4H PRN PRN Reason: Pain Last Admin: 05/06/21 03:23 Dose: 1 tab Documented by: Albuterol (Albuterol 8 Gm Inhaler) 0 gm INH QID PRN PRN Reason: Shortness of Breath Amlodipine Besylate (Amlodipine 10 Mg Tab) 10 mg PO DAILY [facility] Last Admin: 05/07/21 09:00 Dose: 10 mg Documented by: Aspirin (Aspirin 325 Mg Tab.Ec) 325 mg PO DAILY [facility] Last Admin: 05/07/21 09:00 Dose: 325 mg Documented by: Carbamazepine (Carbamazepine 200 Mg Tab.Er) 400 mg PO BID [facility] Last Admin: 05/07/21 09:00 Dose: 400 mg Documented by: Carvedilol (Carvedilol 25 Mg Tab) 25 mg PO BIDMEALS [facility] Last Admin: 05/07/21 08:54 Dose: 25 mg Documented by: Ciprofloxacin (Ciprofloxacin 500 Mg Tab) 500 mg PO Q12H [facility] Last Admin: 05/07/21 06:10 Dose: 500 mg Documented by: Citalopram Hydrobromide (Citalopram 10 Mg Tab) 10 mg PO DAILY [facility] Last Admin: 05/07/21 08:59 Dose: 10 mg Documented by: Levothyroxine Sodium (Levothyroxine 50 Mcg Tab) 50 mcg PO DAILY@0600 [facility] Last Admin: 05/07/21 06:10 Dose: 50 mcg Documented by: Lisinopril (Lisinopril 40 Mg Tab) 40 mg PO DAILY [facility] Last Admin: 05/07/21 09:00 Dose: 40 mg Documented by: Simvastatin (Simvastatin 20 Mg Tab) 20 mg PO DAILY [facility] Last Admin: 05/07/21 09:01 Dose: 20 mg Documented by: Tamsulosin HCl (Tamsulosin 0.4 Mg Cap.Er) 0.4 mg PO DAILY [facility] Last Admin: 05/07/21 09:00 Dose: 0.4 mg Documented by: - Exam General: Alert, Oriented Extremities: Other (Bilateral knees palpable pain on palpation) - Patient Data Result Diagrams: 05/06/21 06:05 05/06/21 06:05 Srikanth Results Last 24 hrs: Microbiology 05/06/21 06:30 Urine Culture - Preliminary Urine, Catheterized No Growth Sepsis Event Note - Focused Exam Vital Signs: Vital Signs Pulse BP 05/07/21 09:00 150/82 H 05/07/21 08:54 70 150/82 H - Problem List & Annotations (1) S/P colostomy SNOMED Code(s): 913435928, 050744246, 621658226 Code(s): Z93.3 - COLOSTOMY STATUS Status: Acute Current Visit: No Onset Date: ~10/06/20 (2) Weakness SNOMED Code(s): 58581625 Code(s): R53.1 - WEAKNESS Status: Acute Current Visit: No (3) COPD (chronic obstructive pulmonary disease) SNOMED Code(s): 18581932 Code(s): J44.9 - CHRONIC OBSTRUCTIVE PULMONARY DISEASE, UNSPECIFIED Status: Chronic Current Visit: No (4) Bacteriuria SNOMED Code(s): 66039248 Code(s): R82.71 - BACTERIURIA Status: Acute Current Visit: Yes (5) Osteoarthritis SNOMED Code(s): 834977687 Code(s): M19.90 - UNSPECIFIED OSTEOARTHRITIS, UNSPECIFIED SITE Status: Chronic Current Visit: No - Problem List Review Problem List Initiated/Reviewed/Updated: Yes - My Orders Last 24 Hours: My Active Orders 05/06/21 09:00 Aspirin [Ecotrin] 325 mg PO DAILY Citalopram [Celexa] 10 mg PO DAILY Simvastatin [Zocor] 20 mg PO DAILY Tamsulosin [Flomax] 0.4 mg PO DAILY amLODIPine [Norvasc] 10 mg PO DAILY lisinopriL [Prinivil] 40 mg PO DAILY 05/06/21 09:01 Communication Order [RC] 05/06/21 18:00 Ciprofloxacin [Ciprofloxacin HCl] 500 mg PO Q12H 05/07/21 09:00 Dietary Supplements [RC] WITHMEALSANDBED 05/07/21 09:07 Urinary Catheter Assessment [RC] .PRN 05/07/21 09:15 Urinary Catheter Insertion [Insert Urinary Catheter] [OM.PC] Q24H - Plan Plan:: 1. I started Cipro just in case this truly is an infection. He came with it with the catheter when he was transfer. Initial cultures negative. But I'll put him on Cipro until I get the culture back. Symptomatically he is actually better. We DC the catheter today. 2. Patient wants cortisone injections in his knees. Procedure 1. Right knee injection. Risk and benefits discussed of knee injections. He understands wants to proceed. Timeout was done and the site was identified. I took oral prep and clean the anterior medial knee. Then I took a sterile gloves and palpated out the joint line. And I took a syringe with 2 mL of dexamethasone and 5 mL of 1% lidocaine with a 25-gauge 1-1/2 inch needle. A easily cannulated the joint and place a medicine. Blood loss complications done. A Band-Aid was placed over the puncture site. Procedure 2. Left knee injection. Risk and benefits discussed of knee injections. He understands wants to proceed. Timeout was done and the site was identified. I took oral prep and clean the anterior medial knee. Then I took a sterile gloves and palpated out the joint line. And I took a syringe with 2 mL of dexamethasone and 5 mL of 1% lidocaine with a 25-gauge 1-1/2 inch needle. A easily cannulated the joint and place a medicine. Blood loss complications done. A Band-Aid was placed over the puncture site.
[2021-05-07] MEDS ORDERED: Dexamethasone 4 MG/ML SDV INJECT ONE (10:53)
[2021-05-08] MEDS: Levothyroxine 50 MCG Tab PO SCH (06:03)
[2021-05-08] MEDS: Ciprofloxacin 500 MG Tab PO SCH (06:03)
[2021-05-08] MEDS: Carvedilol 25 MG Tab PO SCH ×2 (09:00→19:19)
[2021-05-08] MEDS: carBAMazepine 200 MG TAB.ER PO SCH ×2 (09:51→20:48)
[2021-05-08] MEDS: Tamsulosin 0.4 MG Cap.ER PO SCH (09:51)
[2021-05-08] MEDS: Simvastatin 20 MG Tab PO SCH (09:51)
[2021-05-08] MEDS: Citalopram 10 MG Tab PO SCH (09:51)
[2021-05-08] MEDS: Aspirin 325 MG Tab.EC PO SCH (09:51)
[2021-05-08] MEDS: amLODIPine 10 MG Tab PO SCH (09:51)
[2021-05-08] MEDS ORDERED: Betamethasone Acetate/Betamethasone Sod Phosphate 30 MG/5 ML MDV IARTIC ONE (15:47)
--- NOTE | 2021-05-08 16:05 | PCM.PRNOTE ---
- Free Text/Narrative Note: Right shoulder injection Indication: pain, osteoarthritis. Informed consent signed, reviews risks/benefits/alternatives with patient. Staff present: Nadia Calabrese RN Procedure: Skin cleansed with alcohol, Celestone 12 mg(6mg/ml) and Lidocaine 1% 3 ml were injected into right shoulder glenohumeral joint using posterior approach, no blood loss. Patient tolerated procedure well. No complications. Ice to shoulder 20 min on and 20 min off while awake for next 24 hours. Limit activity with right shoulder for next 24 hours, may elevate right arm as needed. May repeat in 3 months as needed.
[2021-05-09] MEDS: Levothyroxine 50 MCG Tab PO SCH (05:39)
[2021-05-09] MEDS: Citalopram 10 MG Tab PO SCH (08:00)
[2021-05-09] MEDS: Carvedilol 25 MG Tab PO SCH ×2 (08:00→17:34)
[2021-05-09] MEDS: Tamsulosin 0.4 MG Cap.ER PO SCH (08:01)
[2021-05-09] MEDS: Aspirin 325 MG Tab.EC PO SCH (08:01)
[2021-05-09] MEDS: amLODIPine 10 MG Tab PO SCH (08:01)
[2021-05-09] MEDS: Simvastatin 20 MG Tab PO SCH (08:02)
[2021-05-09] MEDS: carBAMazepine 200 MG TAB.ER PO SCH ×2 (08:02→21:06)
[2021-05-10] MEDS: Levothyroxine 50 MCG Tab PO SCH (05:28)
[2021-05-10 07:07] VITALS: PULSE 62
[2021-05-10] MEDS: Carvedilol 25 MG Tab PO SCH ×2 (07:49→17:02)
[2021-05-10] MEDS: Tamsulosin 0.4 MG Cap.ER PO SCH (07:59)
[2021-05-10] MEDS: amLODIPine 10 MG Tab PO SCH (07:59)
[2021-05-10] MEDS: carBAMazepine 200 MG TAB.ER PO SCH ×2 (07:59→20:18)
[2021-05-10] MEDS: Simvastatin 20 MG Tab PO SCH (07:59)
[2021-05-10] MEDS: Citalopram 10 MG Tab PO SCH (07:59)
[2021-05-10] MEDS: Aspirin 325 MG Tab.EC PO SCH (07:59)
[2021-05-11] MEDS: Levothyroxine 50 MCG Tab PO SCH (05:11)
[2021-05-11] MEDS: Carvedilol 25 MG Tab PO SCH (07:55)
[2021-05-11] MEDS: Citalopram 10 MG Tab PO SCH (08:01)
[2021-05-11] MEDS: Aspirin 325 MG Tab.EC PO SCH (08:01)
[2021-05-11] MEDS: amLODIPine 10 MG Tab PO SCH (08:01)
[2021-05-11] MEDS: Tamsulosin 0.4 MG Cap.ER PO SCH (08:01)
[2021-05-11] MEDS: Simvastatin 20 MG Tab PO SCH (08:01)
[2021-05-11] MEDS: carBAMazepine 200 MG TAB.ER PO SCH (08:01)
[2021-05-11 08:04] VITALS: BP 118/63
--- NOTE | 2021-05-11 10:11 | PCM.DCSUM1 ---
Discharge Summary - Hospital Course HPI Initial Comments: This is an 86-year-old male patient that had a Borrego's procedure after perforated diverticulitis. He is healed up and he decided he wanted the colostomy taken down. So he went to [facility] and had the operation. He is here because he is weak and needs rehabilitation. Surgery went well. Apparently there he had a couple times couldn't urinate and then placed Epperson catheter and sent him here. He says he is feels tired and weak but he denies fevers, chills, chest pain, cough. Diagnosis: Stroke: No - Discharge Data Discharge Date: 05/11/21 Discharge Disposition: Home, Self-Care 01 Condition: Good - Referral to Home Health Date of Face to Face Encounter: 05/11/21 Reason for Homebound Status: limited mobility Primary Care Physician: Nino Fitzgerald MD Skilled Need: PT/OT/nursing home for wet-to-dry gauze dressing change daily to old stoma site and as needed - Discharge Diagnosis/Problem(s) (1) S/P colostomy takedown SNOMED Code(s): 98428033319606424, 53187531015937369 ICD Code: Z98.890 - OTHER SPECIFIED POSTPROCEDURAL STATES Status: Acute Current Visit: Yes (2) Weakness SNOMED Code(s): 08869741 ICD Code: R53.1 - WEAKNESS Status: Acute Current Visit: No (3) COPD (chronic obstructive pulmonary disease) SNOMED Code(s): 35477473 ICD Code: J44.9 - CHRONIC OBSTRUCTIVE PULMONARY DISEASE, UNSPECIFIED Status: Chronic Current Visit: No (4) Hypertension SNOMED Code(s): 94909517 ICD Code: I10 - ESSENTIAL (PRIMARY) HYPERTENSION Status: Chronic Current Visit: No Qualifiers: Hypertension type: essential hypertension (5) Osteoarthritis SNOMED Code(s): 236447323 ICD Code: M19.90 - UNSPECIFIED OSTEOARTHRITIS, UNSPECIFIED SITE Status: Chronic Current Visit: No Qualifiers: Osteoarthritis location: multiple joints (6) Pacemaker SNOMED Code(s): 592656764 ICD Code: Z95.0 - PRESENCE OF CARDIAC PACEMAKER Status: Chronic Current Visit: No (7) Seizure disorder SNOMED Code(s): 684431148 ICD Code: G40.909 - EPILEPSY, UNSP, NOT INTRACTABLE, WITHOUT STATUS EPILEPTICUS Status: Chronic Current Visit: No - Patient Summary/Data Consults: Consultations 05/05/21 12:26 OT Evaluation and Treatment [CONS] Routine Please Evaluate and Treat. OT Reason for Consult: ADL's This query below is only for informational purposes and is not editable. PT Evaluation and Treatment [CONS] Routine Please Evaluate and Treat. PT Reason for Consult: Ambulation This query below is only for informational purposes and is not editable. Hospital Course: Dagoberto came with Epperson catheter from [place] due to urinary retention after surgery. UA abnormal & urine culture was obtained and was started on Ciprofloxacin while awaiting culture results. Catheter discontinued on 05/06. Urine culture came back no growth so ciprofloxacin was discontinued. He was complaining of bilateral knee pain, last joint injection was Sep [address] Hoskins injected both knee on 05/07, see procedure notes. He had relief of his knee pain and complained to OT about his right shoulder hurting, known osteoarthritis also in his shoulder, has had injections before so I performed right shoulder injection on Tuesday 05/08, see procedure note. He had good results with that. He progressed well with PT/OT and wants to go home today. He has been having daily wet-to-dry gauze dressing to old stoma site, surgery is letting it heal by secondary intention. Midline incision viola are clean/dry/intact using Allevyn dressing daily & as needed. He will follow up with surgery on Tuesday, May 15 as previously scheduled. Home health services ordered on discharge. - Patient Instructions Diet: Regular Diet as Tolerated Activity: As Tolerated Driving: Do Not Drive Showering/Bathing: May Shower Wound/Incision Care: Keep Operative Site/Wound Site Clean and Dry, Change Dressing Daily Notify Provider of: Fever, Increased Pain, Swelling and Redness, Nausea and/or Vomiting Other/Special Instructions: Follow up Surgery on May 15 as previously scheduled. Follow up with Dr Fitzgerald in 1 week for post hospital recheck. - Discharge Plan *PRESCRIPTION DRUG MONITORING PROGRAM REVIEWED*: Not Applicable *COPY OF PRESCRIPTION DRUG MONITORING REPORT IN PATIENT MAURICE: Not Applicable Home Medications: Home Meds Citalopram [Citalopram HBr] 10 mg PO DAILY 04/28/15 [History] Levothyroxine [Synthroid] 50 mcg PO DAILY@0600 08/03/15 [History] Simvastatin [Zocor] 20 mg PO DAILY 04/28/15 [History] carvediloL [Coreg] 25 mg PO BIDMEALS 04/28/15 [History] Albuterol [Ventolin HFA] 2 puff INH QID PRN 11/07/15 [History] Aspirin 325 mg PO DAILY 11/07/15 [History] Carbatrol 200mg 400 mg PO BID 10/06/20 [History] amLODIPine Besylate [Amlodipine Besylate] 10 mg PO DAILY #30 10/23/20 [Rx] lisinopriL [Lisinopril] 40 mg PO DAILY #30 10/23/20 [Rx] Tamsulosin [Flomax] 0.4 mg PO DAILY 05/05/21 [History] Oxygen Therapy Mode: Room Air Referrals: Nino Fitzgerald MD [Primary Care Provider] - - Discharge Summary/Plan Comment DC Time >30 min.: Yes Total # of Minutes for Discharge Time: 30 min - General Info Date of Service: 05/11/21 Subjective Update: Dagoberto states he is feeling good. Pain in right shoulder and his knees is much improved after his joint injections. He has having stools 2 times a day, soft but not loose. He has not used Hydrocodone/APAP since May 06. Denies any chest pain, shortness of breath. PT/OT said he could go home today. - Patient Data Vitals - Most Recent: Last Vital Signs Temp 98 F 05/10/21 07:05 Pulse 62 05/11/21 07:55 Resp 17 05/10/21 07:05 BP 118/63 05/11/21 08:01 Pulse Ox 96 05/10/21 07:05 Weight - Most Recent: 233 lb 9 oz I&O - Last 24 hours: Intake & Output 05/10/21 05/11/21 05/11/21 22:59 06:59 14:59 Intake Total 500 Balance 500 Med Orders - Current: Current Medications Hydrocodone Bitart/Acetaminophen (Acetaminophen/Hydrocodone 325-5 Mg Tab) 1 tab PO Q4H PRN PRN Reason: Pain Last Admin: 05/06/21 03:23 Dose: 1 tab Documented by: Albuterol (Albuterol 8 Gm Inhaler) 0 gm INH QID PRN PRN Reason: Shortness of Breath Amlodipine Besylate (Amlodipine 10 Mg Tab) 10 mg PO DAILY [facility] Last Admin: 05/11/21 08:01 Dose: 10 mg Documented by: Aspirin (Aspirin 325 Mg Tab.Ec) 325 mg PO DAILY [facility] Last Admin: 05/11/21 08:01 Dose: 325 mg Documented by: Carbamazepine (Carbamazepine 200 Mg Tab.Er) 400 mg PO BID [facility] Last Admin: 05/11/21 08:01 Dose: 400 mg Documented by: Carvedilol (Carvedilol 25 Mg Tab) 25 mg PO BIDMEALS [facility] Last Admin: 05/11/21 07:55 Dose: 25 mg Documented by: Citalopram Hydrobromide (Citalopram 10 Mg Tab) 10 mg PO DAILY [facility] Last Admin: 05/11/21 08:01 Dose: 10 mg Documented by: Levothyroxine Sodium (Levothyroxine 50 Mcg Tab) 50 mcg PO DAILY@0600 [facility] Last Admin: 05/11/21 05:11 Dose: 50 mcg Documented by: Lisinopril (Lisinopril 40 Mg Tab) 40 mg PO DAILY [facility] Last Admin: 05/11/21 08:01 Dose: 40 mg Documented by: Simvastatin (Simvastatin 20 Mg Tab) 20 mg PO DAILY [facility] Last Admin: 05/11/21 08:01 Dose: 20 mg Documented by: Tamsulosin HCl (Tamsulosin 0.4 Mg Cap.Er) 0.4 mg PO DAILY [facility] Last Admin: 05/11/21 08:01 Dose: 0.4 mg Documented by: Discontinued Medications Betamethasone Acet/Betameth SodPhos (Betamethasone Acetate/Betamethasone Sod Phosphate 30 Mg/5 Ml Mdv) 12 mg IARTIC ONETIME ONE Stop: 05/08/21 15:48 Last Admin: 05/08/21 16:16 Dose: Not Given Documented by: Ciprofloxacin (Ciprofloxacin 500 Mg Tab) 500 mg PO Q12H [facility] Last Admin: 05/08/21 06:03 Dose: 500 mg Documented by: Dexamethasone (Dexamethasone 4 Mg/Ml Sdv) 8 mg INJECT .STK-MED ONE Stop: 05/07/21 10:54 Lidocaine HCl (Lidocaine 1% 5 Ml Sdv) 5 ml INJECT .STK-MED ONE Stop: 05/07/21 10:54 Lidocaine HCl (Lidocaine 1% 5 Ml Sdv) 3 ml IARTIC ONETIME ONE Stop: 05/08/21 16:01 Last Admin: 08/13/21 16:16 Dose: Not Given Documented by: - Exam General: Reports: Alert, Oriented, Cooperative, No Acute Distress Lungs: Reports: Clear to Auscultation, Normal Respiratory Effort Cardiovascular: Reports: Regular Rate, Regular Rhythm GI/Abdominal Exam: Normal Bowel Sounds, Soft, Non-Tender, No Distention (Male) Exam: Deferred Rectal (Males) Exam: Deferred Wound/Incisions: Reports: Dressing Dry and Intact
== END 2021-05-11 12:35 | disposition home health service (06) | DRG 948 ==
LOC: FB.MS 12:17
PROVIDERS: ADMIT Family Medicine; ATTEND Family Medicine
PROC: 3E0233Z Introduction of Anti-inflammatory into Muscle, Percutaneous Approach (ICD-10-PCS; principal; 2021-05-08)
PROC: 3E023BZ Introduction of Anesthetic Agent into Muscle, Percutaneous Approach (ICD-10-PCS; 2021-05-08)
DX: R53.1 Weakness (principal); R33.9 Retention of urine, unspecified; J44.9 Chronic obstructive pulmonary disease, unspecified; I10 Essential (primary) hypertension; G40.909 Epilepsy, unspecified, not intractable, without status epilepticus; M19.011 Primary osteoarthritis, right shoulder; Z79.890 Hormone replacement therapy; Z79.82 Long term (current) use of aspirin; Z95.0 Presence of cardiac pacemaker; Z79.899 Other long term (current) drug therapy; Z98.890 Other specified postprocedural states; Z93.3 Colostomy status
CPT/HCPCS: 36415; 51701; 80053; 81001; 85025; 87086; 97110-GO; 97110-GP; 97116-GP; 97161-GP; 97165-GO; 97530-GO; 97535-GO; A9270-GY; J0702; J1100

== ENCOUNTER 2022-08-31 14:10 | Inpatient (IN) | payer MEDICARE, OTHER ==
[2022-08-31] MEDS ORDERED: Ondansetron 4 MG Tab.DIS PO PRN (16:21)
[2022-08-31] MEDS ORDERED: Acetaminophen/HYDROcodone 325-5 MG Tab PO PRN (16:21)
[2022-08-31] MEDS ORDERED: Polyethylene Glycol 3350 Powder 17 GM Packet PO PRN (16:21)
[2022-08-31] MEDS ORDERED: Albuterol 8 GM Inhaler INH PRN (16:56)
[2022-08-31] MEDS: Carvedilol 25 MG Tab PO SCH (17:35)
[2022-08-31] MEDS: atorvaSTATin 40 MG Tab PO SCH (17:36)
[2022-08-31] MEDS: Sodium Chloride 0.9% 10 ML Syringe FLUSH PRN ×2 (18:20→20:24)
[2022-08-31] MEDS ORDERED: cefTRIAXone 2 GM in Sodium Chloride 0.9% 50 ML IV SCH (20:00)
[2022-08-31] MEDS: cefTRIAXone 2 GM Vial IV SCH (20:17)
[2022-08-31] MEDS: carBAMazepine 200 MG TAB.ER PO SCH (20:17)
[2022-08-31] MEDS: Acetaminophen 325 MG Tab PO PRN (20:45)
[2022-09-01] MEDS: carBAMazepine 200 MG TAB.ER PO SCH ×2 (06:05→20:02)
[2022-09-01] MEDS: Levothyroxine 75 MCG Tab PO SCH (06:34)
[2022-09-01] MEDS: Carvedilol 25 MG Tab PO SCH ×2 (08:54→17:39)
[2022-09-01] MEDS: Aspirin 81 MG Tab.Chew PO SCH (08:54)
[2022-09-01] MEDS: Tamsulosin 0.4 MG Cap.ER PO SCH (08:55)
[2022-09-01] MEDS: Lisinopril 20 MG Tab PO SCH (08:55)
[2022-09-01] MEDS: Citalopram 10 MG Tab PO SCH (08:55)
[2022-09-01] MEDS: Empagliflozin 25 MG Tab PO SCH (08:55)
[2022-09-01] MEDS: amLODIPine 10 MG Tab PO SCH (08:55)
[2022-09-01] MEDS: cefTRIAXone 2 GM Vial IV SCH ×3 (11:00→23:30)
[2022-09-01] MEDS: Sodium Chloride 0.9% 10 ML Syringe FLUSH PRN ×2 (11:08→23:38)
[2022-09-01] MEDS: Acetaminophen 325 MG Tab PO PRN (17:44)
[2022-09-01] MEDS: atorvaSTATin 40 MG Tab PO SCH (17:58)
[2022-09-01] MEDS: Enoxaparin 40 MG/0.4 ML Syringe SUBCUT SCH (18:00)
[2022-09-02] MEDS: carBAMazepine 200 MG TAB.ER PO SCH ×2 (05:29→20:00)
[2022-09-02] MEDS: Levothyroxine 75 MCG Tab PO SCH (06:44)
[2022-09-02] MEDS: Tamsulosin 0.4 MG Cap.ER PO SCH (08:07)
[2022-09-02] MEDS: Aspirin 81 MG Tab.Chew PO SCH (08:07)
[2022-09-02] MEDS: Empagliflozin 25 MG Tab PO SCH (08:08)
[2022-09-02] MEDS: Citalopram 10 MG Tab PO SCH (08:08)
[2022-09-02] MEDS: Carvedilol 25 MG Tab PO SCH ×2 (08:10→17:35)
[2022-09-02] MEDS: amLODIPine 10 MG Tab PO SCH (08:10)
[2022-09-02] MEDS: Lisinopril 20 MG Tab PO SCH (08:11)
[2022-09-02] MEDS: Acetaminophen 325 MG Tab PO PRN ×2 (08:12→20:00)
[2022-09-02] MEDS: cefTRIAXone 2 GM Vial IV SCH ×2 (11:24→23:17)
[2022-09-02] MEDS: Sodium Chloride 0.9% 10 ML Syringe FLUSH PRN ×2 (11:24→23:34)
[2022-09-02] MEDS: atorvaSTATin 40 MG Tab PO SCH (17:34)
[2022-09-02] MEDS: Enoxaparin 40 MG/0.4 ML Syringe SUBCUT SCH (17:34)
[2022-09-03] MEDS: carBAMazepine 200 MG TAB.ER PO SCH ×2 (05:37→20:00)
[2022-09-03] MEDS: Levothyroxine 75 MCG Tab PO SCH (06:30)
[2022-09-03] MEDS: Tamsulosin 0.4 MG Cap.ER PO SCH (08:36)
[2022-09-03] MEDS: amLODIPine 10 MG Tab PO SCH (08:36)
[2022-09-03] MEDS: Aspirin 81 MG Tab.Chew PO SCH (08:36)
[2022-09-03] MEDS: Citalopram 10 MG Tab PO SCH (08:36)
[2022-09-03] MEDS: Empagliflozin 25 MG Tab PO SCH (08:36)
[2022-09-03] MEDS: Carvedilol 25 MG Tab PO SCH ×2 (08:36→18:18)
[2022-09-03] MEDS: Lisinopril 20 MG Tab PO SCH (08:36)
[2022-09-03] MEDS: Acetaminophen 500 MG Tab PO SCH ×4 (08:41→19:59)
[2022-09-03] MEDS: cefTRIAXone 2 GM Vial IV SCH ×2 (11:12→23:13)
[2022-09-03] MEDS: Ibuprofen 400 MG Tab PO SCH ×5 (11:12→23:27)
[2022-09-03] MEDS: atorvaSTATin 40 MG Tab PO SCH (18:10)
[2022-09-03] MEDS: Enoxaparin 40 MG/0.4 ML Syringe SUBCUT SCH (18:11)
[2022-09-03] MEDS: Sodium Chloride 0.9% 10 ML Syringe FLUSH PRN ×2 (23:12→23:26)
[2022-09-04] MEDS: Acetaminophen 500 MG Tab PO SCH ×6 (01:33→20:10)
[2022-09-04] MEDS: Ibuprofen 400 MG Tab PO SCH ×5 (02:34→17:30)
[2022-09-04] MEDS: carBAMazepine 200 MG TAB.ER PO SCH ×2 (05:56→20:10)
[2022-09-04] MEDS: Levothyroxine 75 MCG Tab PO SCH (06:30)
[2022-09-04] MEDS: Aspirin 81 MG Tab.Chew PO SCH (08:16)
[2022-09-04] MEDS: Carvedilol 25 MG Tab PO SCH ×2 (08:16→17:26)
[2022-09-04] MEDS: Tamsulosin 0.4 MG Cap.ER PO SCH (08:21)
[2022-09-04] MEDS: Empagliflozin 25 MG Tab PO SCH (08:21)
[2022-09-04] MEDS: Citalopram 10 MG Tab PO SCH (08:21)
[2022-09-04] MEDS: Lisinopril 20 MG Tab PO SCH (08:22)
[2022-09-04] MEDS: amLODIPine 10 MG Tab PO SCH (08:22)
[2022-09-04] MEDS: cefTRIAXone 2 GM Vial IV SCH ×2 (11:40→22:59)
[2022-09-04] MEDS: Sodium Chloride 0.9% 10 ML Syringe FLUSH PRN ×3 (11:43→23:09)
[2022-09-04 13:13] LABS: COMMENTS: Note: (.); MACROPHAGES 7 % (Not Estab.)
[2022-09-04 13:13] LABS: MACROPHAGES 1 % (Not Estab.)
[2022-09-04] MEDS: Enoxaparin 40 MG/0.4 ML Syringe SUBCUT SCH (17:25)
[2022-09-04] MEDS: atorvaSTATin 40 MG Tab PO SCH (17:25)
[2022-09-05] MEDS: Ibuprofen 400 MG Tab PO SCH ×7 (00:57→22:27)
[2022-09-05] MEDS: Acetaminophen 500 MG Tab PO SCH ×6 (00:59→20:21)
[2022-09-05] MEDS: carBAMazepine 200 MG TAB.ER PO SCH ×2 (05:56→20:23)
[2022-09-05] MEDS: Levothyroxine 75 MCG Tab PO SCH (07:10)
[2022-09-05] MEDS: Carvedilol 25 MG Tab PO SCH ×2 (08:11→17:40)
[2022-09-05] MEDS: Tamsulosin 0.4 MG Cap.ER PO SCH (08:12)
[2022-09-05] MEDS: amLODIPine 10 MG Tab PO SCH (08:12)
[2022-09-05] MEDS: Lisinopril 20 MG Tab PO SCH (08:12)
[2022-09-05] MEDS: Citalopram 10 MG Tab PO SCH (08:12)
[2022-09-05] MEDS: Empagliflozin 25 MG Tab PO SCH (08:12)
[2022-09-05] MEDS: Aspirin 81 MG Tab.Chew PO SCH (08:12)
[2022-09-05] MEDS: cefTRIAXone 2 GM Vial IV SCH ×2 (11:15→23:24)
[2022-09-05] MEDS: Sodium Chloride 0.9% 10 ML Syringe FLUSH PRN (11:16)
[2022-09-05] MEDS: Enoxaparin 40 MG/0.4 ML Syringe SUBCUT SCH (17:42)
[2022-09-05] MEDS: atorvaSTATin 40 MG Tab PO SCH (17:42)
[2022-09-06] MEDS: Acetaminophen 500 MG Tab PO SCH ×6 (00:59→20:44)
[2022-09-06] MEDS: Ibuprofen 400 MG Tab PO SCH ×6 (02:30→23:39)
[2022-09-06] MEDS: carBAMazepine 200 MG TAB.ER PO SCH ×2 (06:38→20:45)
[2022-09-06] MEDS: Levothyroxine 75 MCG Tab PO SCH (06:38)
[2022-09-06] MEDS: Aspirin 81 MG Tab.Chew PO SCH (08:26)
[2022-09-06] MEDS: Lisinopril 20 MG Tab PO SCH (08:27)
[2022-09-06] MEDS: amLODIPine 10 MG Tab PO SCH (08:27)
[2022-09-06] MEDS: Empagliflozin 25 MG Tab PO SCH (08:27)
[2022-09-06] MEDS: Citalopram 10 MG Tab PO SCH (08:27)
[2022-09-06] MEDS: Tamsulosin 0.4 MG Cap.ER PO SCH (08:27)
[2022-09-06] MEDS: Carvedilol 25 MG Tab PO SCH ×2 (08:28→18:17)
[2022-09-06] MEDS: cefTRIAXone 2 GM Vial IV SCH ×2 (10:32→23:44)
[2022-09-06] MEDS: Sodium Chloride 0.9% 10 ML Syringe FLUSH PRN ×2 (10:34→23:47)
[2022-09-06] MEDS: Enoxaparin 40 MG/0.4 ML Syringe SUBCUT SCH (18:17)
[2022-09-06] MEDS: atorvaSTATin 40 MG Tab PO SCH (18:18)
[2022-09-07] MEDS: Acetaminophen 500 MG Tab PO SCH ×5 (02:02→16:39)
[2022-09-07] MEDS: Ibuprofen 400 MG Tab PO SCH ×4 (02:34→14:37)
[2022-09-07] MEDS: carBAMazepine 200 MG TAB.ER PO SCH ×2 (06:46→21:18)
[2022-09-07] MEDS: Levothyroxine 75 MCG Tab PO SCH (06:46)
[2022-09-07] MEDS: Citalopram 10 MG Tab PO SCH (08:01)
[2022-09-07] MEDS: Empagliflozin 25 MG Tab PO SCH (08:01)
[2022-09-07] MEDS: Aspirin 81 MG Tab.Chew PO SCH (08:02)
[2022-09-07] MEDS: amLODIPine 10 MG Tab PO SCH (08:03)
[2022-09-07] MEDS: Tamsulosin 0.4 MG Cap.ER PO SCH (08:03)
[2022-09-07] MEDS: Lisinopril 20 MG Tab PO SCH (08:04)
[2022-09-07] MEDS: Carvedilol 25 MG Tab PO SCH ×2 (08:04→17:00)
[2022-09-07] MEDS: cefTRIAXone 2 GM Vial IV SCH ×2 (11:06→22:54)
[2022-09-07] MEDS: Sodium Chloride 0.9% 10 ML Syringe FLUSH PRN (11:07)
[2022-09-07] MEDS: atorvaSTATin 40 MG Tab PO SCH (17:00)
[2022-09-07] MEDS: Enoxaparin 40 MG/0.4 ML Syringe SUBCUT SCH (17:01)
[2022-09-08] MEDS: carBAMazepine 200 MG TAB.ER PO SCH ×2 (05:13→20:24)
[2022-09-08] MEDS: Levothyroxine 75 MCG Tab PO SCH (06:37)
[2022-09-08] MEDS: Aspirin 81 MG Tab.Chew PO SCH (08:39)
[2022-09-08] MEDS: Carvedilol 25 MG Tab PO SCH ×2 (08:39→17:16)
[2022-09-08] MEDS: Empagliflozin 25 MG Tab PO SCH (08:39)
[2022-09-08] MEDS: Citalopram 10 MG Tab PO SCH (08:39)
[2022-09-08] MEDS: Lisinopril 20 MG Tab PO SCH (08:40)
[2022-09-08] MEDS: amLODIPine 10 MG Tab PO SCH (08:40)
[2022-09-08] MEDS: Tamsulosin 0.4 MG Cap.ER PO SCH (08:40)
[2022-09-08] MEDS: cefTRIAXone 2 GM Vial IV SCH ×2 (12:09→22:14)
[2022-09-08] MEDS: Sodium Chloride 0.9% 10 ML Syringe FLUSH PRN (12:15)
[2022-09-08] MEDS: atorvaSTATin 40 MG Tab PO SCH (17:16)
[2022-09-08] MEDS: Enoxaparin 40 MG/0.4 ML Syringe SUBCUT SCH (17:16)
[2022-09-09] MEDS: Ibuprofen 400 MG Tab PO PRN (00:10)
[2022-09-09] MEDS: Acetaminophen 500 MG Tab PO PRN (00:11)
[2022-09-09] MEDS: carBAMazepine 200 MG TAB.ER PO SCH ×2 (05:43→20:00)
[2022-09-09] MEDS: Carvedilol 25 MG Tab PO SCH ×2 (09:12→19:25)
[2022-09-09] MEDS: Levothyroxine 75 MCG Tab PO SCH (09:12)
[2022-09-09] MEDS: Aspirin 81 MG Tab.Chew PO SCH (09:13)
[2022-09-09] MEDS: amLODIPine 10 MG Tab PO SCH (09:13)
[2022-09-09] MEDS: Empagliflozin 25 MG Tab PO SCH (09:13)
[2022-09-09] MEDS: Tamsulosin 0.4 MG Cap.ER PO SCH (09:13)
[2022-09-09] MEDS: Lisinopril 20 MG Tab PO SCH (09:13)
[2022-09-09] MEDS: Citalopram 10 MG Tab PO SCH (09:13)
[2022-09-09] MEDS: Enoxaparin 40 MG/0.4 ML Syringe SUBCUT SCH (19:24)
[2022-09-09] MEDS: atorvaSTATin 40 MG Tab PO SCH (19:25)
[2022-09-10] MEDS: carBAMazepine 200 MG TAB.ER PO SCH ×2 (05:51→20:30)
[2022-09-10] MEDS: Levothyroxine 75 MCG Tab PO SCH (06:30)
[2022-09-10] MEDS: Tamsulosin 0.4 MG Cap.ER PO SCH (08:13)
[2022-09-10] MEDS: Empagliflozin 25 MG Tab PO SCH (08:13)
[2022-09-10] MEDS: Carvedilol 25 MG Tab PO SCH ×2 (08:13→16:59)
[2022-09-10] MEDS: Aspirin 81 MG Tab.Chew PO SCH (08:13)
[2022-09-10] MEDS: Citalopram 10 MG Tab PO SCH (08:13)
[2022-09-10] MEDS: amLODIPine 10 MG Tab PO SCH (08:14)
[2022-09-10] MEDS: Lisinopril 20 MG Tab PO SCH (08:14)
[2022-09-10] MEDS: Acetaminophen 500 MG Tab PO PRN (16:52)
[2022-09-10] MEDS: Ibuprofen 400 MG Tab PO PRN (16:52)
[2022-09-10] MEDS: atorvaSTATin 40 MG Tab PO SCH (17:00)
[2022-09-10] MEDS: Enoxaparin 40 MG/0.4 ML Syringe SUBCUT SCH (17:00)
[2022-09-11] MEDS: carBAMazepine 200 MG TAB.ER PO SCH ×2 (05:50→20:30)
[2022-09-11] MEDS: Levothyroxine 75 MCG Tab PO SCH (06:39)
[2022-09-11] MEDS: amLODIPine 10 MG Tab PO SCH (08:06)
[2022-09-11] MEDS: Citalopram 10 MG Tab PO SCH (08:06)
[2022-09-11] MEDS: Carvedilol 25 MG Tab PO SCH ×2 (08:06→17:26)
[2022-09-11] MEDS: Lisinopril 20 MG Tab PO SCH (08:06)
[2022-09-11] MEDS: Tamsulosin 0.4 MG Cap.ER PO SCH (08:06)
[2022-09-11] MEDS: Aspirin 81 MG Tab.Chew PO SCH (08:06)
[2022-09-11] MEDS: Empagliflozin 25 MG Tab PO SCH (08:06)
[2022-09-11] MEDS: atorvaSTATin 40 MG Tab PO SCH (17:26)
[2022-09-11] MEDS: Enoxaparin 40 MG/0.4 ML Syringe SUBCUT SCH (17:28)
[2022-09-12] MEDS: carBAMazepine 200 MG TAB.ER PO SCH ×2 (06:46→20:22)
[2022-09-12] MEDS: Levothyroxine 75 MCG Tab PO SCH (06:46)
[2022-09-12] MEDS: Carvedilol 25 MG Tab PO SCH (09:12)
[2022-09-12] MEDS: Lisinopril 20 MG Tab PO SCH (09:13)
[2022-09-12] MEDS: amLODIPine 10 MG Tab PO SCH (09:13)
[2022-09-12] MEDS: Tamsulosin 0.4 MG Cap.ER PO SCH (09:16)
[2022-09-12] MEDS: Empagliflozin 25 MG Tab PO SCH (09:16)
[2022-09-12] MEDS: Citalopram 10 MG Tab PO SCH (09:16)
[2022-09-12] MEDS: Aspirin 81 MG Tab.Chew PO SCH (09:16)
[2022-09-12] MEDS: Acetaminophen 500 MG Tab PO PRN (16:48)
[2022-09-12] MEDS: atorvaSTATin 40 MG Tab PO SCH (17:52)
[2022-09-12] MEDS: Enoxaparin 40 MG/0.4 ML Syringe SUBCUT SCH (17:52)
[2022-09-12] MEDS: Carvedilol 12.5 MG Tab PO SCH (17:53)
[2022-09-13] MEDS: carBAMazepine 200 MG TAB.ER PO SCH ×2 (06:14→20:21)
[2022-09-13] MEDS: Levothyroxine 75 MCG Tab PO SCH (06:43)
[2022-09-13] MEDS: Aspirin 81 MG Tab.Chew PO SCH (08:31)
[2022-09-13] MEDS: Tamsulosin 0.4 MG Cap.ER PO SCH (08:32)
[2022-09-13] MEDS: Citalopram 10 MG Tab PO SCH (08:32)
[2022-09-13] MEDS: Empagliflozin 25 MG Tab PO SCH (08:33)
[2022-09-13] MEDS: Carvedilol 12.5 MG Tab PO SCH ×2 (08:36→18:10)
[2022-09-13] MEDS: amLODIPine 2.5 MG Tab PO SCH (08:37)
[2022-09-13] MEDS: Lisinopril 5 MG Tab PO SCH (08:37)
[2022-09-13] MEDS: Enoxaparin 40 MG/0.4 ML Syringe SUBCUT SCH (18:11)
[2022-09-13] MEDS: atorvaSTATin 40 MG Tab PO SCH (18:11)
[2022-09-14] MEDS: carBAMazepine 200 MG TAB.ER PO SCH ×2 (05:52→20:31)
[2022-09-14] MEDS: Levothyroxine 75 MCG Tab PO SCH (07:19)
[2022-09-14] MEDS: amLODIPine 2.5 MG Tab PO SCH (08:15)
[2022-09-14] MEDS: Empagliflozin 25 MG Tab PO SCH (08:16)
[2022-09-14] MEDS: Carvedilol 12.5 MG Tab PO SCH ×2 (08:16→17:39)
[2022-09-14] MEDS: Aspirin 81 MG Tab.Chew PO SCH (08:16)
[2022-09-14] MEDS: Citalopram 10 MG Tab PO SCH (08:16)
[2022-09-14] MEDS: Tamsulosin 0.4 MG Cap.ER PO SCH (08:16)
[2022-09-14] MEDS: Lisinopril 5 MG Tab PO SCH (08:16)
[2022-09-14] MEDS: atorvaSTATin 40 MG Tab PO SCH (17:39)
[2022-09-14] MEDS: Enoxaparin 40 MG/0.4 ML Syringe SUBCUT SCH (17:40)
[2022-09-15] MEDS: Levothyroxine 75 MCG Tab PO SCH (06:57)
[2022-09-15] MEDS: carBAMazepine 200 MG TAB.ER PO SCH ×2 (06:57→21:38)
[2022-09-15] MEDS: Empagliflozin 25 MG Tab PO SCH (08:38)
[2022-09-15] MEDS: Citalopram 10 MG Tab PO SCH (08:38)
[2022-09-15] MEDS: Tamsulosin 0.4 MG Cap.ER PO SCH (08:38)
[2022-09-15] MEDS: Carvedilol 12.5 MG Tab PO SCH ×2 (08:38→17:08)
[2022-09-15] MEDS: Aspirin 81 MG Tab.Chew PO SCH (08:38)
[2022-09-15] MEDS: amLODIPine 2.5 MG Tab PO SCH (08:39)
[2022-09-15] MEDS: Lisinopril 5 MG Tab PO SCH (08:39)
[2022-09-15] MEDS: atorvaSTATin 40 MG Tab PO SCH (17:07)
[2022-09-15] MEDS: Enoxaparin 40 MG/0.4 ML Syringe SUBCUT SCH (17:11)
[2022-09-16] MEDS: carBAMazepine 200 MG TAB.ER PO SCH (07:01)
[2022-09-16] MEDS: Levothyroxine 75 MCG Tab PO SCH (07:01)
[2022-09-16 07:38] VITALS: BP 139/80; PULSE 62
[2022-09-16] MEDS: Citalopram 10 MG Tab PO SCH (08:20)
[2022-09-16] MEDS: amLODIPine 2.5 MG Tab PO SCH (08:20)
[2022-09-16] MEDS: Carvedilol 12.5 MG Tab PO SCH (08:20)
[2022-09-16] MEDS: Aspirin 81 MG Tab.Chew PO SCH (08:20)
[2022-09-16] MEDS: Empagliflozin 25 MG Tab PO SCH (08:20)
[2022-09-16] MEDS: Tamsulosin 0.4 MG Cap.ER PO SCH (08:20)
[2022-09-16] MEDS: Lisinopril 5 MG Tab PO SCH (08:21)
== END 2022-09-16 13:00 | disposition home health service (06) | DRG 98 ==
LOC: FB.MS 16:17
PROVIDERS: ADMIT Family Medicine; ATTEND Family Medicine
DX: G03.9 Meningitis, unspecified (principal); G93.40 Encephalopathy, unspecified; R78.81 Bacteremia; E03.9 Hypothyroidism, unspecified; J44.9 Chronic obstructive pulmonary disease, unspecified; I10 Essential (primary) hypertension; M19.90 Unspecified osteoarthritis, unspecified site; I49.5 Sick sinus syndrome; G40.909 Epilepsy, unspecified, not intractable, without status epilepticus; B95.3 Streptococcus pneumoniae as the cause of diseases classified elsewhere; H91.90 Unspecified hearing loss, unspecified ear; E78.00 Pure hypercholesterolemia, unspecified; R33.9 Retention of urine, unspecified; E66.9 Obesity, unspecified; E83.39 Other disorders of phosphorus metabolism; Z98.49 Cataract extraction status, unspecified eye; Z95.0 Presence of cardiac pacemaker; Z79.82 Long term (current) use of aspirin; Z93.3 Colostomy status; Z79.890 Hormone replacement therapy; Z79.899 Other long term (current) drug therapy; I25.2 Old myocardial infarction; Z87.01 Personal history of pneumonia (recurrent); Z90.49 Acquired absence of other specified parts of digestive tract; Z68.33 Body mass index [BMI] 33.0-33.9, adult
CPT/HCPCS: 87070; 87205; 89051; 89060; 92610-GN; 97116-GP; 97161-GP; 97165-GO; 97530-GO; 97530-GP; 97535-GO; A9270-GY; J0696; J1650; J3490

== ENCOUNTER 2024-05-11 11:23 | Inpatient (IN) | payer MEDICARE, OTHER ==
[2024-05-11 13:10] LABS: HEMATOCRIT 42.3 % (38.3-50.1); HEMOGLOBIN 14.4 g/dL (12.9-17.7); MEAN CORPUSCULAR HGB CONC 34.1 g/dL (28.7-35.3); MEAN CORPUSCULAR VOLUME 99.7 fL (80.8-98.7); MEAN PLATELET VOLUME 8.4 fL (6.7-11.0); PLATELET COUNT,PLT 113 x10(3)uL (117-477); RED BLOOD CELL COUNT 4.24 x10(6)uL (3.90-5.90); RED CELL DISTRIBUTION WIDTH 13.9 % (12.4-15.0)
[2024-05-11 13:15] LABS: BILIRUBIN,URINE NEGATIVE (NEGATIVE); GLUCOSE,URINE >1000 mg/dL (NORMAL); KETONES,URINE NEGATIVE (NEGATIVE); LEUKOCYTE ESTERASE,URINE LARGE (NEGATIVE); NITRITE,URINE NEGATIVE (NEGATIVE); OCCULT BLOOD,URINE LARGE (NEGATIVE); PROTEIN,URINE 30 mg/dL (NEGATIVE); UROBILINOGEN,URINE NORMAL (NEGATIVE)
[2024-05-11 13:16] LABS: APPEARANCE,URINE CLOUDY (CLEAR); COLOR,URINE YELLOW (YELLOW)
[2024-05-11 13:20] LABS: A/G RATIO 0.9; ALANINE AMINOTRANSFERASE,ALT 12 U/L (12-36); ALBUMIN 3.4 g/dL (3.2-4.6); ALKALINE PHOSPHATASE 82 IU/L (56-112); ASPARTATE AMNIOTRANSFERASE,AST 25 IU/L (5-25); BILIRUBIN TOTAL 0.8 mg/dL (0.1-1.3); BLOOD UREA NITROGEN,BUN 52 mg/dL (7-18); CALCIUM 8.5 mg/dL (8.6-10.2); CARBON DIOXIDE,CO2 26 mmol/L (21-32); CHLORIDE,CL 103 mmol/L (100-110); EST CRCL DRUG DOSING (CG) 24.45 mL/min; ESTIMATED GFR 32 mL/min (>60); GLUCOSE RANDOM 100 mg/dL (80-116); MAGNESIUM 1.6 mg/dL (1.8-2.5); PHOSPHORUS 2.7 mg/dL (2.6-4.6); POTASSIUM,K 4.9 mmol/L (3.5-5.3); PROTEIN TOTAL,TP 7.2 g/dL (6.0-8.0); SODIUM,NA 138 mmol/L (135-145)
[2024-05-11 13:21] LABS: BACTERIA,URINE MANY (NS); RBC,URINE >100 (0-5); SQUAMOUS EPITHELIAL CELLS,UR RARE (NS,R,O); WBC,URINE >100 (0-5)
[2024-05-11 13:26] LABS: TROPONIN I 27.1 pg/mL (4.0-60.3)
[2024-05-11 13:30] LABS: LACTIC ACID 2.1 mmol/L (0.4-2.0)
[2024-05-11 13:34] LABS: BAND PERCENT MAN 1 % (0-6); LYMPHOCYTES PERCENT MAN 4 % (13-37); MONOCYTES PERCENT MAN 9 % (4-12); SEG NEUTROPHILS PERCENT MAN 86 % (46-82)
[2024-05-11] MEDS: cefTRIAXone 1 GM Vial IVPUSH SCH (14:03)
[2024-05-11] MEDS: Sodium Chloride 0.9% 1,000 ML IV ONE (14:05)
[2024-05-11] MEDS ORDERED: Sennosides/Docusate Sodium 50-8.6 MG Tab PO PRN (14:33)
[2024-05-11] MEDS ORDERED: Acetaminophen 325 MG Tab PO PRN (14:33)
[2024-05-11] MEDS ORDERED: Ondansetron 4 MG/2 ML SDV IV PRN (14:33)
[2024-05-11] MEDS ORDERED: Albuterol 0.083% 2.5 MG/3 ML Neb Soln NEB PRN (14:33)
[2024-05-11] MEDS: Azithromycin 500 MG in Sodium Chloride 0.9% 250 ML IV SCH (14:34)
[2024-05-11] MEDS: Albuterol/Ipratropium 3.0-0.5 MG/3 ML Neb Soln NEB SCH (15:43)
[2024-05-11] MEDS: Enoxaparin 30 MG/0.3 ML Syringe SUBCUT SCH (15:43)
[2024-05-11] MEDS: Carboxymethylcellulose Sodium 0.5% Ophth Soln 15 ML Bottle EYEBOTH SCH (16:17)
[2024-05-11] MEDS: Ketotifen 0.025% Ophth Soln 5 ML Bottle EYEBOTH SCH (20:08)
[2024-05-11] MEDS: Carvedilol 12.5 MG Tab PO SCH (20:09)
[2024-05-11] MEDS: Sacubitril/Valsartan 24 MG-26 MG Tab PO SCH (20:10)
[2024-05-11] MEDS: carBAMazepine 200 MG TAB.ER PO SCH (20:10)
[2024-05-12] MEDS: Levothyroxine 75 MCG Tab PO SCH (05:19)
[2024-05-12 06:14] LABS: HEMOGLOBIN 13.4 g/dL (12.9-17.7); MEAN CORPUSCULAR HEMOGLOBIN 33.6 pg (27.0-33.3); MEAN CORPUSCULAR HGB CONC 33.6 g/dL (28.7-35.3); MEAN PLATELET VOLUME 8.7 fL (6.7-11.0); PLATELET COUNT,PLT 126 x10(3)uL (117-477); RED CELL DISTRIBUTION WIDTH 14.1 % (12.4-15.0); WHITE BLOOD CELL COUNT,WBC 10.2 x10-3/uL (3.2-10.1)
[2024-05-12 06:24] LABS: A/G RATIO 0.8; ALANINE AMINOTRANSFERASE,ALT 20 U/L (12-36); ALBUMIN 2.8 g/dL (3.2-4.6); ALKALINE PHOSPHATASE 78 IU/L (56-112); ASPARTATE AMNIOTRANSFERASE,AST 34 IU/L (5-25); BILIRUBIN TOTAL 0.6 mg/dL (0.1-1.3); BLOOD UREA NITROGEN,BUN 51 mg/dL (7-18); BUN/CREATININE RATIO 31.9 (9-20); CALCIUM 8.2 mg/dL (8.6-10.2); CARBON DIOXIDE,CO2 21 mmol/L (21-32); CREATININE 1.6 mg/dL (0.70-1.30); EST CRCL DRUG DOSING (CG) 33.99 mL/min; ESTIMATED GFR 41 mL/min (>60); GLUCOSE RANDOM 98 mg/dL (80-116); PROTEIN TOTAL,TP 6.3 g/dL (6.0-8.0)
[2024-05-12 06:34] LABS: C-REACTIVE PROTEIN 16.15 mg/dL (<0.50)
[2024-05-12 06:35] LABS: CHLORIDE,CL 104 mmol/L (100-110); POTASSIUM,K 4.1 mmol/L (3.5-5.3); SODIUM,NA 135 mmol/L (135-145)
[2024-05-12 06:45] LABS: BASOPHILS PERCENT MAN 1 % (0-2); EOSINOPHILS PERCENT MAN 2 % (0-5); LYMPHOCYTES PERCENT MAN 11 % (13-37); MONOCYTES PERCENT MAN 6 % (4-12); SEG NEUTROPHILS PERCENT MAN 80 % (46-82)
[2024-05-12] MEDS ORDERED: Levothyroxine 75 MCG Tab PO SCH (07:30)
[2024-05-12] MEDS: carBAMazepine 200 MG TAB.ER PO SCH (08:02)
[2024-05-12] MEDS: Citalopram 10 MG Tab PO SCH (08:04)
[2024-05-12] MEDS: atorvaSTATin 40 MG Tab PO SCH (08:04)
[2024-05-12] MEDS: Aspirin 81 MG Tab.Chew PO SCH (08:04)
[2024-05-12] MEDS: Empagliflozin 25 MG Tab PO SCH (08:05)
[2024-05-12] MEDS: Tamsulosin 0.4 MG Cap.ER PO SCH (08:05)
[2024-05-12] MEDS ORDERED: 50% Dextrose in Water 50 ML Syringe IVPUSH PRN (08:38)
[2024-05-12] MEDS ORDERED: Glucagon,Human Recombinant 1 MG Vial IM PRN (08:38)
[2024-05-12 08:54] LABS: HEMOGLOBIN A1C 5.5 % (<5.7)
[2024-05-12] MEDS: Sodium Chloride 0.9% 10 ML Syringe FLUSH PRN (09:11)
[2024-05-12] MEDS: Furosemide 20 MG/2 ML VIAL IVPUSH ONE (09:11)
[2024-05-12] MEDS: Spironolactone 25 MG Tab PO SCH (09:11)
[2024-05-12] MEDS: Magnesium Oxide 400 MG Tab PO SCH (09:51)
[2024-05-12] MEDS: Insulin Lispro 100 Unit/ML 3 ML KwikPen SUBCUT SCH (12:18)
[2024-05-12] MEDS: Azithromycin 500 MG in Sodium Chloride 0.9% 250 ML IV SCH (14:11)
[2024-05-13 06:18] LABS: HEMATOCRIT 40.2 % (38.3-50.1); HEMOGLOBIN 13.5 g/dL (12.9-17.7); MEAN CORPUSCULAR HEMOGLOBIN 33.4 pg (27.0-33.3); MEAN CORPUSCULAR HGB CONC 33.7 g/dL (28.7-35.3); PLATELET COUNT,PLT 131 x10(3)uL (117-477); RED BLOOD CELL COUNT 4.06 x10(6)uL (3.90-5.90); RED CELL DISTRIBUTION WIDTH 13.6 % (12.4-15.0); WHITE BLOOD CELL COUNT,WBC 7.7 x10-3/uL (3.2-10.1)
[2024-05-13 06:22] LABS: BLOOD UREA NITROGEN,BUN 55 mg/dL (7-18); BUN/CREATININE RATIO 36.7 (9-20); CALCIUM 8.5 mg/dL (8.6-10.2); CARBON DIOXIDE,CO2 23 mmol/L (21-32); CHLORIDE,CL 101 mmol/L (100-110); CREATININE 1.5 mg/dL (0.70-1.30); EST CRCL DRUG DOSING (CG) 36.26 mL/min; ESTIMATED GFR 45 mL/min (>60); GLUCOSE RANDOM 92 mg/dL (80-116); POTASSIUM,K 4.1 mmol/L (3.5-5.3); SODIUM,NA 135 mmol/L (135-145)
[2024-05-13 06:35] LABS: BASOPHILS PERCENT MAN 1 % (0-2); EOSINOPHILS PERCENT MAN 8 % (0-5); LYMPHOCYTES PERCENT MAN 15 % (13-37); MONOCYTES PERCENT MAN 16 % (4-12); SEG NEUTROPHILS PERCENT MAN 60 % (46-82)
[2024-05-13] MEDS: Saccharomyces Boulardii (Probiotic) 250 MG Cap PO SCH (09:07)
[2024-05-14 06:50] LABS: HEMATOCRIT 41.2 % (38.3-50.1); MEAN CORPUSCULAR HEMOGLOBIN 33.5 pg (27.0-33.3); MEAN CORPUSCULAR HGB CONC 33.9 g/dL (28.7-35.3); MEAN CORPUSCULAR VOLUME 98.9 fL (80.8-98.7); MEAN PLATELET VOLUME 8.8 fL (6.7-11.0); PLATELET COUNT,PLT 140 x10(3)uL (117-477); RED BLOOD CELL COUNT 4.17 x10(6)uL (3.90-5.90); RED CELL DISTRIBUTION WIDTH 13.6 % (12.4-15.0); WHITE BLOOD CELL COUNT,WBC 8.7 x10-3/uL (3.2-10.1)
[2024-05-14 06:51] LABS: BLOOD UREA NITROGEN,BUN 46 mg/dL (7-18); BUN/CREATININE RATIO 32.9 (9-20); CALCIUM 8.6 mg/dL (8.6-10.2); CARBON DIOXIDE,CO2 24 mmol/L (21-32); CHLORIDE,CL 104 mmol/L (100-110); CREATININE 1.4 mg/dL (0.70-1.30); EST CRCL DRUG DOSING (CG) 38.85 mL/min; ESTIMATED GFR 48 mL/min (>60); GLUCOSE RANDOM 97 mg/dL (80-116); SODIUM,NA 136 mmol/L (135-145)
[2024-05-14 07:02] LABS: EOSINOPHILS PERCENT MAN 6 % (0-5); LYMPHOCYTES PERCENT MAN 21 % (13-37); MONOCYTES PERCENT MAN 13 % (4-12); SEG NEUTROPHILS PERCENT MAN 60 % (46-82)
[2024-05-15 06:37] LABS: HEMATOCRIT 42.4 % (38.3-50.1); HEMOGLOBIN 14.5 g/dL (12.9-17.7); MEAN CORPUSCULAR HEMOGLOBIN 33.9 pg (27.0-33.3); MEAN CORPUSCULAR HGB CONC 34.1 g/dL (28.7-35.3); MEAN CORPUSCULAR VOLUME 99.3 fL (80.8-98.7); PLATELET COUNT,PLT 159 x10(3)uL (117-477); RED BLOOD CELL COUNT 4.27 x10(6)uL (3.90-5.90); RED CELL DISTRIBUTION WIDTH 13.6 % (12.4-15.0); WHITE BLOOD CELL COUNT,WBC 8.5 x10-3/uL (3.2-10.1)
[2024-05-15 06:44] LABS: BLOOD UREA NITROGEN,BUN 37 mg/dL (7-18); BUN/CREATININE RATIO 30.8 (9-20); CALCIUM 8.5 mg/dL (8.6-10.2); CARBON DIOXIDE,CO2 24 mmol/L (21-32); CHLORIDE,CL 104 mmol/L (100-110); CREATININE 1.2 mg/dL (0.70-1.30); EST CRCL DRUG DOSING (CG) 45.32 mL/min; ESTIMATED GFR 58 mL/min (>60); GLUCOSE RANDOM 92 mg/dL (80-116); POTASSIUM,K 3.9 mmol/L (3.5-5.3); SODIUM,NA 136 mmol/L (135-145)
[2024-05-15 06:54] LABS: EOSINOPHILS PERCENT MAN 5 % (0-5); LYMPHOCYTES PERCENT MAN 12 % (13-37); MONOCYTES PERCENT MAN 13 % (4-12); SEG NEUTROPHILS PERCENT MAN 70 % (46-82)
[2024-05-15 08:32] VITALS: BP 128/80; PULSE 80
== END 2024-05-15 11:35 | disposition home or self-care (01) | DRG 682 ==
LOC: FB.ED 11:23 → FB.MS 14:43
PROVIDERS: ADMIT Family Medicine; ATTEND Family Medicine
DX: N17.9 Acute kidney failure, unspecified (principal); I50.43 Acute on chronic combined systolic (congestive) and diastolic (congestive) heart failure; I50.9 Heart failure, unspecified; J18.9 Pneumonia, unspecified organism; G93.40 Encephalopathy, unspecified; I13.0 Hypertensive heart and chronic kidney disease with heart failure and stage 1 through stage 4 chronic kidney disease, or unspecified chronic kidney disease; I42.9 Cardiomyopathy, unspecified; R56.9 Unspecified convulsions; J44.0 Chronic obstructive pulmonary disease with (acute) lower respiratory infection; J44.9 Chronic obstructive pulmonary disease, unspecified; N39.0 Urinary tract infection, site not specified; Z95.0 Presence of cardiac pacemaker; I49.5 Sick sinus syndrome; E86.0 Dehydration; Z68.36 Body mass index [BMI] 36.0-36.9, adult; E03.9 Hypothyroidism, unspecified; E66.9 Obesity, unspecified; E11.22 Type 2 diabetes mellitus with diabetic chronic kidney disease; N18.9 Chronic kidney disease, unspecified; Z90.49 Acquired absence of other specified parts of digestive tract; E78.00 Pure hypercholesterolemia, unspecified; M19.90 Unspecified osteoarthritis, unspecified site; F41.9 Anxiety disorder, unspecified; H91.90 Unspecified hearing loss, unspecified ear; G40.909 Epilepsy, unspecified, not intractable, without status epilepticus; D32.9 Benign neoplasm of meninges, unspecified; B96.20 Unspecified Escherichia coli [E. coli] as the cause of diseases classified elsewhere; I25.2 Old myocardial infarction; Z79.52 Long term (current) use of systemic steroids; Z79.82 Long term (current) use of aspirin; Z79.899 Other long term (current) drug therapy; Z79.890 Hormone replacement therapy; Z98.49 Cataract extraction status, unspecified eye; Z86.16 Personal history of COVID-19; Z87.891 Personal history of nicotine dependence; Z95.810 Presence of automatic (implantable) cardiac defibrillator; Z98.890 Other specified postprocedural states
CPT/HCPCS: 36415; 70450; 71045; 80053; 81001; 83605; 83735; 83880; 84100; 84484; 85025; 87086; 87088; 87186; 93005; 96374; 99285; J0456; J0696; J7030; J7050; U0002; 80048; 82947; 83036; 86140; 94150; 94640; 97161-GP; 99223; 99232; 99233; 99239; A9270-GY; J1650; J1815; J1940; J3490; J7620

== ENCOUNTER 2025-04-06 21:27 | Emergency (ER) | payer MEDICARE, OTHER ==
[2025-04-06 21:49] VITALS: BP 122/78; PULSE 83
[2025-04-06 22:25] LABS: BASOPHILS ABSOLUTE AUTO 0.1 x10-3/uL (0.0-0.3); BASOPHILS PERCENT AUTO 0.6 % (0.3-3.8); EOSINOPHILS ABSOLUTE AUTO 0.3 x10-3/uL (0.0-0.6); EOSINOPHILS PERCENT AUTO 2.5 % (0.1-6.8); LYMPHOCYTES ABSOLUTE AUTO 1.4 x10-3/uL (0.5-4.5); LYMPHOCYTES PERCENT AUTO 12.1 % (15.8-45.3); MEAN PLATELET VOLUME 8.0 fL (6.7-11.0); MONOCYTES ABSOLUTE AUTO 1.6 x10-3/uL (0.0-1.2); MONOCYTES PERCENT AUTO 13.6 % (5.5-15.2); NEUTROPHILS ABSOLUTE AUTO 8.4 x10-3/uL (1.7-6.9); NEUTROPHILS PERCENT AUTO 71.2 % (40.3-71.8); PLATELET COUNT,PLT 150 x10(3)uL (117-477); RED BLOOD CELL COUNT 4.78 x10(6)uL (3.90-5.90); RED CELL DISTRIBUTION WIDTH 13.5 % (12.4-15.0); WHITE BLOOD CELL COUNT,WBC 11.8 x10-3/uL (3.2-10.1)
[2025-04-06 22:31] LABS: BLOOD UREA NITROGEN,BUN 32 mg/dL (7-18); CARBON DIOXIDE,CO2 28 mmol/L (21-32); CHLORIDE,CL 101 mmol/L (100-110); CREATININE 1.8 mg/dL (0.70-1.30); ESTIMATED GFR 36 mL/min (>60); GLUCOSE RANDOM 124 mg/dL (80-116); POTASSIUM,K 4.7 mmol/L (3.5-5.3); SODIUM,NA 137 mmol/L (135-145)
[2025-04-06 22:37] LABS: A/G RATIO 1.1; ALANINE AMINOTRANSFERASE,ALT 19 U/L (12-36); ASPARTATE AMNIOTRANSFERASE,AST 20 IU/L (5-25); BILIRUBIN TOTAL 0.7 mg/dL (0.1-1.3); PROTEIN TOTAL,TP 7.1 g/dL (6.0-8.0)
[2025-04-06 23:17] LABS: GLUCOSE,URINE >1000 mg/dL (NORMAL); OCCULT BLOOD,URINE NEGATIVE (NEGATIVE)
[2025-04-06 23:18] LABS: APPEARANCE,URINE CLEAR (CLEAR)
== END 2025-04-06 23:40 | disposition home or self-care (01) ==
LOC: FB.ED 21:27
DX: E86.0 Dehydration (principal); I10 Essential (primary) hypertension; I25.2 Old myocardial infarction; E78.00 Pure hypercholesterolemia, unspecified; E03.9 Hypothyroidism, unspecified; E66.9 Obesity, unspecified; J44.9 Chronic obstructive pulmonary disease, unspecified; Z87.891 Personal history of nicotine dependence; Z79.899 Other long term (current) drug therapy; Z79.82 Long term (current) use of aspirin; Z79.890 Hormone replacement therapy; Z86.16 Personal history of COVID-19; Z90.49 Acquired absence of other specified parts of digestive tract
CPT/HCPCS: 36415; 71045; 80053; 81003; 83605; 84484; 85025; 87040; 93005; 96361; 96374; 99285; J0696; J7030; 93010; 99284

== ENCOUNTER 2025-04-08 17:43 | Emergency (ER) | payer MEDICARE, OTHER ==
[2025-04-08 17:59] VITALS: BP 151/74; PULSE 84
[2025-04-08 18:09] LABS: BASOPHILS ABSOLUTE AUTO 0.1 x10-3/uL (0.0-0.3); BASOPHILS PERCENT AUTO 0.4 % (0.3-3.8); EOSINOPHILS ABSOLUTE AUTO 0.2 x10-3/uL (0.0-0.6); EOSINOPHILS PERCENT AUTO 1.2 % (0.1-6.8); LYMPHOCYTES ABSOLUTE AUTO 1.3 x10-3/uL (0.5-4.5); LYMPHOCYTES PERCENT AUTO 9.3 % (15.8-45.3); MEAN PLATELET VOLUME 8.0 fL (6.7-11.0); MONOCYTES ABSOLUTE AUTO 1.9 x10-3/uL (0.0-1.2); MONOCYTES PERCENT AUTO 13.9 % (5.5-15.2); NEUTROPHILS ABSOLUTE AUTO 10.4 x10-3/uL (1.7-6.9); NEUTROPHILS PERCENT AUTO 75.2 % (40.3-71.8); PLATELET COUNT,PLT 195 x10(3)uL (117-477); RED BLOOD CELL COUNT 4.77 x10(6)uL (3.90-5.90); RED CELL DISTRIBUTION WIDTH 13.3 % (12.4-15.0); WHITE BLOOD CELL COUNT,WBC 13.8 x10-3/uL (3.2-10.1)
[2025-04-08 18:13] LABS: BLOOD UREA NITROGEN,BUN 27 mg/dL (7-18); CARBON DIOXIDE,CO2 26 mmol/L (21-32); CHLORIDE,CL 102 mmol/L (100-110); CREATININE 1.5 mg/dL (0.70-1.30); EST CRCL DRUG DOSING (CG) 35.56 mL/min; ESTIMATED GFR 44 mL/min (>60); GLUCOSE RANDOM 90 mg/dL (80-116); POTASSIUM,K 4.8 mmol/L (3.5-5.3); SODIUM,NA 137 mmol/L (135-145)
[2025-04-08 18:19] LABS: A/G RATIO 0.9; ALANINE AMINOTRANSFERASE,ALT 18 U/L (12-36); ASPARTATE AMNIOTRANSFERASE,AST 16 IU/L (5-25); BILIRUBIN TOTAL 0.8 mg/dL (0.1-1.3); PROTEIN TOTAL,TP 7.2 g/dL (6.0-8.0)
[2025-04-08] MEDS: Iopamidol 755 Mg/ML 100 ML Bottle IV SCH (18:47)
[2025-04-08 19:34] LABS: INR 1.12 (1.00-1.24)
[2025-04-08 19:36] LABS: PTT,PARTIAL THROMBOPLSTIN TIME 37.6 SECONDS (24.4-33.2)
== END 2025-04-08 20:40 | disposition home or self-care (01) ==
LOC: FB.ED 17:43
DX: I26.99 Other pulmonary embolism without acute cor pulmonale (principal); E78.00 Pure hypercholesterolemia, unspecified; I10 Essential (primary) hypertension; I25.2 Old myocardial infarction; Z95.0 Presence of cardiac pacemaker; J44.9 Chronic obstructive pulmonary disease, unspecified; E03.9 Hypothyroidism, unspecified; Z79.51 Long term (current) use of inhaled steroids; Z79.82 Long term (current) use of aspirin; Z79.899 Other long term (current) drug therapy; Z79.01 Long term (current) use of anticoagulants; Z86.16 Personal history of COVID-19
CPT/HCPCS: 36415; 71275; 80053; 83605; 84484; 85025; 85610; 85730; 87426-QW; 93005; 99285; A9270-GY; Q9967